=== PATIENT | female | born 1965 | race Caucasian/White ===

== ENCOUNTER 2021-05-28 12:00 | Inpatient (IN) | payer BC, SELFPAY ==
[2021-05-28] VITALS (45 sets, daily range): BP systolic 91–159; BP diastolic 62–139; PULSE 96–149; RESP 14–32; TEMP 36.3–36.4; O2SAT 94–100
--- NOTE | 2021-05-28 | ECHO_ITS ---
Patient Info Name: Brina Merida Age: 55 years : 1965 Gender: Female Ht: 67 in Wt: 357 lbs BSA: 2.87 m2 HR: 131 bpm BP: 129 / 99 mmHg Heart Rhythm: Atrial Fibrillation Technical Quality: Fair Exam Date: 05/28/2021 2:34 PM Exam Location: [facility] Patient Status: Outpatient Admit Date: 05/28/2021 Staff Ordering Physician: Mel De Santiago APRN [employer]: Catarina Hannah RDCS Attending Provider: Marbin Ward MD Referring Physician: Anyi FLORES; Exam Type: CA echo doppler color flow Study Info Indications - afib/rvr Complete two-dimensional, color flow and Doppler transthoracic echocardiogram is performed. Summary 1. Complete two-dimensional, color flow and Doppler transthoracic echocardiogram is performed. 2. Left ventricular chamber dimension is normal. 3. Left ventricular systolic function is normal, estimated at 55-60%. 4. Left ventricular septal wall motion is abnormal with septal motion related to bundle branch block. 5. The left ventricular diastolic function is abnormal. 6. E/e' 11 is mildly elevated. 7. Atrial fibrillation. 8. Left atrial chamber dimension is moderately enlarged. 9. Right atrial chamber dimension is moderately enlarged. 10. The mitral valve has mildly calcified annulus. 11. There is moderate mitral valve regurgitation. 12. There is mild tricuspid valve regurgitation. 13. No pulmonary hypertension, estimated pulmonary arterial systolic pressure is 27 mmHg. Left Ventricle E/e' 11 is mildly elevated. Atrial fibrillation. Left ventricular chamber dimension is normal. Left ventricular systolic function is normal, estimated at 55-60%. Left ventricular septal wall motion is abnormal with septal motion related to bundle branch block. The left ventricular diastolic function is abnormal. Right Ventricle Right ventricular systolic function is normal and with normal TAPSE 1.8 cm. Right ventricular chamber dimension is normal. Left Atria Left atrial chamber dimension is moderately enlarged. Right Atria Right atrial chamber dimension is moderately enlarged. Aortic Valve The aortic valve is probable trileaflet. There is no aortic valve stenosis. There is no aortic valve regurgitation. Pulmonic Valve There is no pulmonic regurgitation. Mitral Valve The mitral valve has mildly calcified annulus. There is no mitral valve stenosis. There is moderate mitral valve regurgitation. Tricuspid Valve There is mild tricuspid valve regurgitation. No pulmonary hypertension, estimated pulmonary arterial systolic pressure is 27 mmHg. Pericardium/Pleural There is no pericardial effusion. Inferior Vena Cava Normal inferior vena cava with >50% collapse upon inspiration consistent with normal right atrial pressure, 5 mmHg. Aorta The aortic root size at the sinus of Valsalva is normal. Left Ventricular Outflow Tract Name Value Normal LVOT 2D LVOT Diameter 2.0 cm LVOT Doppler LVOT Peak Gradient 2 mmHg LVOT Mean Gradient 1 mmHg LVOT VTI 12 cm
--- NOTE | ~2021-05-28 | XR_ITS ---
XR chest 1V portable 05/28/2021 12:26 Indication: Shortness of breath Procedure: AP portable chest Comparison: No prior studies for comparison. Findings: Cardiomegaly. Mild pulmonary vascular congestion. No focal pneumonia, pleural effusion or p neumothorax. No acute osseous abnormality. Impression: 1: Cardiomegaly with pulmonary vascular congestion. Reviewed, dictated and finalized at location B. Impression: 1: Cardiomegaly with pulmonary vascular congestion.
--- NOTE | 2021-05-28 12:13 | ECG_ITS ---
Measurements Intervals [place] Rate: 143 P: VA: 0 QRS: 70 QRSD: 101 T: 48 QT: 309 QTc: 478 Interpretive Statements ATYPICAL ATRIAL FLUTTER WITH 2-1 CONDUCTION LOW QRS VOLTAGE IN PRECORDIAL LEADS [QRS DEFLECTION < 1.0 mV IN CHEST LEADS] ABNORMAL RHYTHM ECG NO PREVIOUS ECG AVAILABLE FOR COMPARISON Electronically Signed On 05-28-2021 14:32:57 CDT by Steven Blair M.D.
--- NOTE | 2021-05-28 12:15 | ED.ARRPALP ---
HPI - Arrhythmia/Palpitations General Chief Complaint: Shortness of Breath/Dyspnea Stated Complaint: shortness of breath Time Seen by Provider: 05/28/21 12:03 Source: RN notes reviewed History of Present Illness HPI narrative: Patient presents emergency department from home for shortness of breath. Patient states she has been having shortness of breath for the past 1 week that is been progressively worsening since been associate with swelling of her lower extremities as well as nausea. Patient states has been having nausea on a regular basis with a feeling of uneasiness in the upper abdomen she denies any fevers or chills states she has been having some chest pressure today over the left side of her chest denies any vomiting diarrhea or any other symptoms. States she has a history of atrial fibrillation she is on amiodarone once per day at night as well as metoprolol which she has been taking as well as Xarelto she is followed by cardiology at [facility]. She denies any fevers or chills Related Data Home Medications Medication Instructions Recorded Confirmed blood sugar diagnostic #10 each 02/16/19 09/27/20 cyanocobalamin (vitamin B-12) 500 500 mcg PO DAILY 02/16/19 09/27/20 mcg tablet ferrous sulfate 325 mg (65 mg 325 mg PO DAILY 02/16/19 09/27/20 iron) tablet amiodarone 200 mg tablet 200 mg PO DAILY 05/11/19 09/27/20 dapagliflozin 10 mg tablet 10 mg PO DAILY 05/11/19 09/27/20 metoprolol succinate 25 mg 75 mg PO BID tablet 05/11/19 09/27/20 tablet,extended release 24 hr spironolactone 50 mg tablet 50 mg PO DAILY 05/11/19 09/27/20 cholecalciferol (vitamin D3) 50 1,000 unit PO DAILY tablet 09/15/19 09/27/20 mcg (2,000 unit) tablet rivaroxaban 20 mg tablet 20 mg PO DAILY 09/27/20 09/27/20 Allergies Allergy/AdvReac Type Severity Reaction Status Date / Time No Known Allergies Allergy Verified 08/23/20 09:05 Review of Systems Review of Systems: Gen.: Denies fevers or chills ENT: Denies congestion Respiratory: Reports shortness of breath CV: Reports chest pain GI: Denies abdominal pain vomiting or diarrhea. Reports nausea denies burning, urgency, frequency or hematuria Musculoskeletal: Denies back pain or muscle pain Neuro: Denies numbness, tingling, weakness or focal weakness Skin: Denies rash Except as documented, all other systems reviewed and negative [facility] Past Medical History Medical History (Updated 05/28/21 @ 15:30 by Aftab Louie DO) Acute non-recurrent maxillary sinusitis Acute pharyngitis, unspecified Chronic left hip pain Chronic low back pain with left-sided sciatica Chronic low back pain with right-sided sciatica COVID-19 Diabetes A1c 05/20/20 was 7.3 Diabetic peripheral neuropathy associated with type 2 diabetes mellitus (09/27/20) Hip pain, right Irregular menses FSH 9.2, LH 7.1, estradiol 82 on 02/28/2021 Low back pain Microalbuminuria due to type 2 diabetes mellitus (09/19/20) Microalbumin ratio 31 Muscle spasm of both lower legs SI joint arthritis (08/23/20) severe on right and moderate on the left arthritis of the SI joints UTI (urinary tract infection) Yeast vaginitis Surgical History Surgical History (Updated 05/28/21 @ 14:43 by Mel De Santiago APRN) History of tubal ligation Status post endometrial ablation Family History Family History Father Diabetes mellitus Mother Carcinoma of colon, Onset Age: 53 Grandparent Family history of malignant neoplasm of breast in first degree relative, Onset Age: 90 Social History Social History Smoking status: Never smoker Alcohol intake: current Alcohol use details: ben Substance use: never Substance use type: does not use Additional occupation/education comments: [employer] Gender identity (if verbalized by the patient): Female Exam Narrative
[2021-05-28 12:22] LABS: Basophils Absolute Auto 0.1 K/mm3 (0.0-0.1); Basophils Percent Auto 0.7 % (0.2-1.2); Eosinophils Absolute Auto 0.2 K/mm3 (0-0.3); Eosinophils Percent Auto 1.7 % (0-4.4); Hematocrit 38.4 % (37.0-47.0); Immature Granulocyte Absolute 0.05 K/mm3 (0.00-0.031); Immature Granulocyte Percent A 0.6 % (0-0.5); Lymphocytes Absolute Auto 1.94 K/mm3 (0.9-3.2); Lymphocytes Percent Auto 22.4 % (18.3-44.2); Mean Corpuscular HGB Conc 31.3 g/dl (32-36); Mean Corpuscular Hemoglobin 26.5 pg (26-34); Mean Platelet Volume 10.1 fl (7.4-10.4); Monocytes Absolute Auto 0.6 K/mm3 (0.1-0.6); Monocytes Percent Auto 7.4 % (2.6-8.5); Neutrophils Absolute Auto 5.8 K/mm3 (1.3-6.7); Neutrophils Percent Auto 67.2 % (45.5-73.1); Platelet Count Result 253 k/mm3 (150-375); Red Blood Count 4.52 M/mm3 (4.2-5.4); Red Cell Distribution Width 13.4 % (11.5-14.5); White Blood Count 8.7 K/mm3 (4.5-10.0)
[2021-05-28] MEDS: dilTIAZem HCl INJ 25 MG/5 ML VIAL 5 MG IV PUSH (12:33)
[2021-05-28] MEDS: dilTIAZem 100 MG/100 ML 100 MG/100 ML BAG IV CONT (12:44)
[2021-05-28 12:59] LABS: Alanine Aminotransferase 35 U/L (4-35); Alkaline Phosphatase 58 U/L (38-126); Anion Gap 10 mmol/L (8-16); Aspartate Amino Transferase 42 U/L (14-36); Bilirubin,Total 0.8 mg/dL (0.2-1.3); Blood Urea Nitrogen 15 mg/dL (7-17); Calcium 8.9 mg/dL (8.4-10.2); Carbon Dioxide 25 mmol/L (22-30); Chloride 101 mmol/L (98-107); Estimated CRCL calculation 100 ml/min; Estimated Glomerular Filt Rate > 60; Glucose 182 mg/dL (65-110); Lipase 126 U/L (23-300); Potassium 3.7 mmol/L (3.4-5.0); Sodium 136 mmol/L (137-145)
[2021-05-28 13:11] LABS: NT Pro B Type Natriuretic Pept 938 pg/mL (5-100); Troponin I < 0.012 ng/mL (0.000-0.034)
[2021-05-28 13:41] LABS: INR 1.9
[2021-05-28 14:01] LABS: Partial Thromboplastin Time > 200.0 SECONDS (22.3-36.8)
[2021-05-28 14:21] LABS: Add Urine Microscopic? YES; Appearance Urine Cloudy (Clear); Bacteria Urine Trace /hpf; Bilirubin Urine Negative (Negative); Blood Urine 1+ (Negative); Color Urine Yellow (Yellow); Glucose Urine UA 2+ mg/dL (Negative); Ketones Urine Negative (Negative); Leukocyte Esterase Ur Negative LEU/UL (Negative); Mucus Urine Rare /lpf; Nitrate Urine Negative (Negative); Protein Urine 1+ mg/dL (Negative); RBC Urine 0-2 /hpf (0-2); Specific Grav Ur 1.017 (1.001-1.035); Squamous Epithelial Cell Urine Moderate /hpf (Few); WBC Urine 0-3 /hpf
--- NOTE | 2021-05-28 14:39 | PM.IMHP ---
H&P: HPI History of Present Illness Date/Time: Patient was placed observation status for expected length of stay less than 23 hours for management, will plan to re-evaluate tomorrow for improvement. 05/28/21 14:39 Chief Complaint: Shortness of breath Narrative: Ms. Merida is a 55-year-old female who presented emergency room with complaints of shortness of breath x1 week. Patient states she has a known history of atrial fibrillation and she sees a prototype model maker at [facility]. Patient states over the last week she has had increasing shortness of breath and over the last few days she has had a heaviness over her left breast. Patient states that typically when her atrial fibrillation is ?acting up? she will get this heaviness. Patient denies any palpitations and states she has never had any with her atrial fibrillation. Patient states that on occasion she will forget to take her oral Lasix because it is the only medication she takes in the morning. Patient states she also believes she has been off of her amiodarone for approximately 1 week secondary to not realizing she had run out of it and is a mail order medication. Patient denies any lightheadedness, dizziness, syncopal, near syncopal episodes, orthopnea, or PND. Patient states that she does have edema to bilateral lower extremities, but this is a chronic issue for her and it has not worsened recently. Patient has a known history of atrial fibrillation, diabetes mellitus, depression, dyslipidemia, osteoarthritis, and chronic pain. Patient states she has also had a history of congestive heart failure although she is unsure of what type of heart failure she has. Patient states she is diabetic and supposed to be taking Farxiga, but she has not gotten the medication because it was too expensive co-pay. Patient states she has only been taking her metformin. Review of Systems Review of Systems: A 12 point review of systems was completed patient all pertinent positive and negative per HPI the remainder are unremarkable. [facility] Past Medical History Medical History (Updated 05/28/21 @ 14:53 by Mel De Santiago APRN) Acute non-recurrent maxillary sinusitis Acute pharyngitis, unspecified Chronic left hip pain Chronic low back pain with left-sided sciatica Chronic low back pain with right-sided sciatica COVID-19 Diabetes A1c 05/20/20 was 7.3 Diabetic peripheral neuropathy associated with type 2 diabetes mellitus (09/27/20) Hip pain, right Irregular menses FSH 9.2, LH 7.1, estradiol 82 on 02/28/2021 Low back pain Microalbuminuria due to type 2 diabetes mellitus (09/19/20) Microalbumin ratio 31 Muscle spasm of both lower legs SI joint arthritis (08/23/20) severe on right and moderate on the left arthritis of the SI joints UTI (urinary tract infection) Yeast vaginitis Surgical History Surgical History (Updated 05/28/21 @ 14:43 by Mel De Santiago APRN) History of tubal ligation Status post endometrial ablation Family History Family History Father Diabetes mellitus Mother Carcinoma of colon, Onset Age: 53 Grandparent Family history of malignant neoplasm of breast in first degree relative, Onset Age: 90 Social History Social History Smoking status: Never smoker Alcohol intake: current Alcohol use details: ben Substance use: never Substance use type: does not use Additional occupation/education comments: [employer] Gender identity (if verbalized by the patient): Female Meds Home Medications and Allergies Home Medications Medication Instructions Recorded Confirmed Type albuterol sulfate 90 mcg/actuation 2 puff INHALATION Q4H PRN #18 gm 01/19/19 09/27/20 Rx aerosol inhaler blood sugar diagnostic #10 each 02/16/19 09/27/20 History cyanocobalamin (vitamin B-12) 500 500 mcg PO DAILY 02/16/19 09/27/20 De
[2021-05-28] MEDS: FUROSEMIDE INJ 40 MG/4 ML VIAL IV PUSH (14:44)
[2021-05-28 15:22] LABS: SARS-CoV-2 RNA PCR Negative
[2021-05-28 15:57] LABS: Troponin I < 0.012 ng/mL (0.000-0.034)
--- NOTE | 2021-05-28 16:22 | PC.NURSE ---
This patient, Brina Merida, was admitted to IMU Room 206-02. Patient/family oriented to hospital policies and general routines including ID bracelet, bed and alarms, visiting hours, pain management, procedures, bathroom and other care routines, personal items, smoking policy, room service/diet, and visiting hours. Information on how to activate the Rapid Response Team has been discussed. Patient/Family are encouraged to report perceived risks to care and to ask questions if they do not understand what they are told or what they should do.
[2021-05-28 16:38] LABS: Glucose Point of Care 154 mg/dl (65-105)
[2021-05-28] MEDS: METOPROLOL TARTRATE TAB 25 MG, METOPROLOL TARTRATE TAB 50 MG 75 MG PO ×2 (17:36→23:21)
[2021-05-28] MEDS: dilTIAZem 100 MG/100 ML 100 MG/100 ML BAG 15 MG IV CONT (18:29)
[2021-05-28 19:35] LABS: Glucose Point of Care 165 mg/dl (65-105)
[2021-05-28 19:57] LABS: Troponin I < 0.012 ng/mL (0.000-0.034)
[2021-05-28] MEDS: traZODone HCL 50 MG TABLET 100 MG PO (23:21)
[2021-05-28] MEDS: RIVAROXABAN 20 MG TABLET PO (23:52)
[2021-05-29] VITALS (26 sets, daily range): BP systolic 85–112; BP diastolic 42–78; PULSE 65–117; RESP 18; TEMP 35.2–36.8; O2SAT 95–100
[2021-05-29] MEDS: dilTIAZem 100 MG/100 ML 100 MG/100 ML BAG 15 MG IV CONT ×2 (01:14→08:06)
[2021-05-29 05:08] LABS: Basophils Absolute Auto 0.1 K/mm3 (0.0-0.1); Basophils Percent Auto 0.7 % (0.2-1.2); Eosinophils Absolute Auto 0.2 K/mm3 (0-0.3); Eosinophils Percent Auto 2.1 % (0-4.4); Hematocrit 35.4 % (37.0-47.0); Hemoglobin 11.1 g/dL (12.0-15.0); Immature Granulocyte Absolute 0.07 K/mm3 (0.00-0.031); Immature Granulocyte Percent A 0.7 % (0-0.5); Lymphocytes Absolute Auto 3.23 K/mm3 (0.9-3.2); Lymphocytes Percent Auto 32.9 % (18.3-44.2); Mean Corpuscular HGB Conc 31.4 g/dl (32-36); Mean Corpuscular Hemoglobin 26.9 pg (26-34); Mean Corpuscular Volume 85.7 fl (80-100); Mean Platelet Volume 10.2 fl (7.4-10.4); Monocytes Absolute Auto 0.8 K/mm3 (0.1-0.6); Monocytes Percent Auto 8.1 % (2.6-8.5); Neutrophils Absolute Auto 5.4 K/mm3 (1.3-6.7); Neutrophils Percent Auto 55.5 % (45.5-73.1); Platelet Count Result 262 k/mm3 (150-375); Red Blood Count 4.13 M/mm3 (4.2-5.4); Red Cell Distribution Width 13.5 % (11.5-14.5); White Blood Count 9.8 K/mm3 (4.5-10.0)
[2021-05-29 05:22] LABS: Anion Gap 8 mmol/L (8-16); Blood Urea Nitrogen 17 mg/dL (7-17); Calcium 8.6 mg/dL (8.4-10.2); Carbon Dioxide 26 mmol/L (22-30); Chloride 101 mmol/L (98-107); Estimated CRCL calculation 100 ml/min; Estimated Glomerular Filt Rate > 60; Glucose 151 mg/dL (65-110); Potassium 3.3 mmol/L (3.4-5.0); Sodium 135 mmol/L (137-145)
[2021-05-29] MEDS: METOPROLOL TARTRATE TAB 25 MG, METOPROLOL TARTRATE TAB 50 MG 75 MG PO ×3 (05:53→21:51)
[2021-05-29] MEDS: AMIODARONE HCL 200 MG TABLET PO (08:09)
[2021-05-29] MEDS: FERROUS SULFATE 324 MG TABLET PO (08:09)
[2021-05-29] MEDS: POTASSIUM CHLORIDE 20 MEQ TABLET.ER 40 MEQ BY MOUTH (08:09)
[2021-05-29 08:21] LABS: Glucose Point of Care 185 mg/dl (65-105)
--- NOTE | 2021-05-29 09:24 | PM.CNCAR ---
Assessment and Plan Assessment and plan (1) Atrial fibrillation with rapid ventricular response: Code(s): I48.91 - Unspecified atrial fibrillation Status: Acute Assessment and Plan: Patient with a history of paroxysmal atrial fibrillation which has been controlled well with amiodarone, metoprolol and Xarelto. Presented with persistent atypical atrial flutter, now looks like an AFib, RVR. Not well controlled at this time. Medical management somewhat hampered by soft blood pressure Hold losartan at this time Continue diltiazem 10 milligrams/hour Amiodarone bolus Increase p.o. amiodarone to 400 mg BID Continue Xarelto; has not missed any doses. Depending on the patient's course we may consider cardioversion during this admission (2) Acute diastolic CHF (congestive heart failure): Code(s): I50.31 - Acute diastolic (congestive) heart failure Status: Acute Assessment and Plan: Acute on chronic diastolic heart failure due to AFib RVR Continue IV Lasix, increase to b.i.d. Hypokalemic on admission, will supplement potassium and check daily BMP. Check Magnesium level in a.m. (3) Mitral regurgitation: Code(s): I34.0 - Nonrheumatic mitral (valve) insufficiency Status: Acute Assessment and Plan: Moderate mitral regurgitation. Will need to be re-evaluated in the future by her usual sole sewer hand. (4) Hypertension: Code(s): I10 - Essential (primary) hypertension Status: Acute Assessment and Plan: Blood pressure is running low now. (5) ANTONIA (obstructive sleep apnea): Code(s): G47.33 - Obstructive sleep apnea (adult) (pediatric) Status: Acute Assessment and Plan: Compliant with CPAP (6) Morbid obesity: Code(s): E66.01 - Morbid (severe) obesity due to excess calories Status: Acute History of Present Illness History of Present Illness Consult date/time: 05/29/21 09:24 Reason For Visit: A fib with RVR/CHF Narrative: Brina Merida is a 55-year-old female whom were asked to see at the request of Dr. Louie for our advice and opinion regarding her AFib RVR and CHF. The patient has a history of AFib in CHF and is followed by DR. Crews at [facility]. Her AFib was diagnosed in 2019 and took about a year before medications were adjusted and the AFib seemed to be resolved/controlled, with amiodarone, metoprolol and Xarelto. She has never had a cardioversion and has not needed a cardiac catheterization. She has hypertension, diabetes and hyperlipidemia. She has sleep apnea on CPAP. She had COVID in January 2020. Ms. Merida has noted increasing shortness of breath for last 1-2 weeks. She usually takes her furosemide 40 mg 1 or 2 tablets today and increased it to 2 or 3 tablets a day recently without improvement. She has not felt any palpitations. She was having some nausea as well as substernal chest heaviness particularly supine. She came to the emergency room and was found to have atypical atrial flutter, RVR, heart rate 130-150. She is on a Cardizem drip at 10 milligrams/hour and given furosemide 40 mg IV push. She is not feeling much better but hopes to go home today. Heart rate is running up to the 120s with minor activity. She did run out of 1 medicine, her losartan, recently as it has not arrived from her mail order pharmacy. She has not missed any Xarelto doses. Chronic lower extremity edema not much worse than usual. She has been compliant with her CPAP. Review of Systems Constitutional: Constitutional: Reports fatigue and Reports weakness Eyes: Eyes: Reports no additional eye complaints ENT: Denies epistaxis Cardiovascular: Cardiovascular: Reports chest pain, Reports pedal edema, Reports leg edema, Denies lightheadedness and Denies palpitations Respiratory: Respiratory: Reports chest congestion, Reports cough, Reports dyspnea and Reports dyspnea on exertion Gastrointestinal: Gastrointestinal: Denies abdomin
[2021-05-29] MEDS: FUROSEMIDE INJ 40 MG/4 ML VIAL IV PUSH ×2 (09:31→17:48)
[2021-05-29] MEDS: LOSARTAN POTASSIUM 50 MG TABLET PO (09:32)
[2021-05-29] MEDS: SPIRONOLACTONE 50 MG TABLET PO (09:32)
[2021-05-29] MEDS: ESCITALOPRAM OXALATE 10 MG TABLET 20 MG PO (09:32)
[2021-05-29] MEDS: CHOLECALCIFEROL 1,000 UNITS TABLET 1000 UNITS PO (09:32)
[2021-05-29] MEDS: CYANOCOBALAMIN 500 MCG TABLET PO (09:33)
[2021-05-29] MEDS: ATORVASTATIN 10 MG TABLET PO (09:33)
[2021-05-29] MEDS: LANSOPRAZOLE ORAL SUSP 30 MG/10 ML ORAL.SUSP PO (09:36)
--- NOTE | 2021-05-29 12:01 | PM.IMPN ---
Progress Note: A&P Assessment and Plan (1) Atrial fibrillation with rapid ventricular response: Code(s): I48.91 - Unspecified atrial fibrillation Status: Acute Assessment and Plan: -Patient with a history of paroxysmal atrial fibrillation which has been controlled well with amiodarone, metoprolol and Xarelto. -Presented with persistent atypical atrial flutter, now looks like an AFib, RVR. Not well controlled at this time. Management per cardiology as follows: -Hold losartan at this time. -Continue diltiazem 10 milligrams/hour -Amiodarone bolus -Increase p.o. amiodarone to 400 mg BID -Continue Xarelto; has not missed any doses. -Depending on the patient's course we may consider cardioversion during this admission (2) Congestive heart failure of unknown etiology: Code(s): I50.9 - Heart failure, unspecified Status: Deleted Assessment and Plan: -Chest x-ray does show pulmonary vascular congestion. -At this time patient's acute congestive heart failure could be secondary to her atrial fibrillation with rapid ventricular response. -Patient states she does not take her Lasix all the time at home because she often forgets it. -Will give patient 1 dose of IV Lasix and monitor intake and output. -Will have echo Doppler performed to evaluate patient's heart function. -Will also attempt to get all cardiology records from [facility]. -Cardiology has been consult and do appreciate any further recommendations. (3) Type 2 diabetes mellitus without complication, without long-term current use of insulin: Code(s): E11.9 - Type 2 diabetes mellitus without complications Status: Acute Assessment and Plan: -Patient states she has been taking metformin at home and was recently prescribed Farxiga, but she never started this medication secondary to cost. -Will have blood glucose monitoring before meals and at bedtime while patient is hospitalized and sliding scale insulin available. (4) Hypokalemia: Code(s): E87.6 - Hypokalemia Status: Acute Assessment and Plan: -monitor and replace as indicated -daily BMP -check mag in AM Subjective Date/time seen: 05/29/21 12:01 Interval history: Pt is a 55 yo female w/ hx of atrial fibrillation, CHF, diabetes mellitus, depression, dyslipidemia, osteoarthritis, and chronic pain, admitted for afib rvr. Pt is doing okay today. At rest she has no cp or sob. With exertion she is still having some sob and chest pressure, but it has improved. She denies N/V/D/abd pain. Denies LE pain, states always has some mild edema. Review of Systems Review of Systems: All systems reviewed & are unremarkable except as noted in HPI and below Exam Narrative: General: No acute distress, non toxic appearing, morbidly obese Eyes: PERRL, no scleral icterus HEENT: NCAT, external ears normal, MMM Respiratory: No respiratory distress, Lungs CTA bilaterally, no wheezing Cardiovascular: tachycardic, irregular rhythm Abdominal: Soft, nontender, no rebound or guarding Musculoskeletal: Moves all 4 extremities, 1+ edema BLE, no tenderness Neurological: A/Ox3, speech normal, no facial asymmetry Skin: Warm, dry, no rashes Psychiatric: Normal affect, normal mood Objective Data Vital Signs Vital Signs: Vital Signs - 24 hr 05/28/21 12:05 05/28/21 12:06 05/28/21 12:07 Temperature 97.4 F L Pulse Rate 130 H Respiratory Rate 20 Blood Pressure 153/118 H 153/118 H Pulse Oximetry 100 100 100 05/28/21 12:15 05/28/21 12:30 05/28/21 12:32 Temperature Pulse Rate 146 H 138 H Respiratory Rate 25 H 19 Blood Pressure 152/131 H Pulse Oximetry 100 100 97 05/28/21 12:34 05/28/21 12:44 05/28/21 12:45 Temperature Pulse Rate 123 H 137 H Respiratory Rate 21 H Blood Pressure 117/72 117/72 Pulse Oximetry 99 100 05/28/21 12:47 05/28/21 13:00 05/28/21 13:01 Temperature Pulse Rate
[2021-05-29 12:03] LABS: Glucose Point of Care 206 mg/dl (65-105)
[2021-05-29] MEDS: AMIODARONE HCL 200 MG TABLET 400 MG PO ×2 (12:27→17:48)
[2021-05-29] MEDS: AMIODARONE 150 MG/D5W 100 ML 150 MG/100 ML BAG 600 MG IV CONT (12:28)
[2021-05-29] MEDS: INSULIN ASPART (*BKC) 100 UNITS/ML SUB-Q (12:38)
[2021-05-29 16:39] LABS: Glucose Point of Care 184 mg/dl (65-105)
[2021-05-29] MEDS: RIVAROXABAN 20 MG TABLET PO (17:49)
[2021-05-29] MEDS: dilTIAZem 100 MG/100 ML 100 MG/100 ML BAG IV CONT (17:50)
[2021-05-29 20:48] LABS: Glucose Point of Care 189 mg/dl (65-105)
[2021-05-29] MEDS: traZODone HCL 50 MG TABLET 100 MG PO (21:50)
[2021-05-30] VITALS (19 sets, daily range): BP systolic 96–122; BP diastolic 46–84; PULSE 66–130; RESP 8–22; TEMP 36.2–36.8; O2SAT 93–100
[2021-05-30 05:07] LABS: Basophils Absolute Auto 0.1 K/mm3 (0.0-0.1); Basophils Percent Auto 0.8 % (0.2-1.2); Eosinophils Absolute Auto 0.2 K/mm3 (0-0.3); Eosinophils Percent Auto 2.1 % (0-4.4); Hematocrit 36.5 % (37.0-47.0); Hemoglobin 11.4 g/dL (12.0-15.0); Immature Granulocyte Absolute 0.08 K/mm3 (0.00-0.031); Immature Granulocyte Percent A 0.8 % (0-0.5); Lymphocytes Absolute Auto 3.36 K/mm3 (0.9-3.2); Lymphocytes Percent Auto 33.8 % (18.3-44.2); Mean Corpuscular HGB Conc 31.2 g/dl (32-36); Mean Corpuscular Hemoglobin 26.8 pg (26-34); Mean Corpuscular Volume 85.9 fl (80-100); Monocytes Absolute Auto 0.7 K/mm3 (0.1-0.6); Neutrophils Absolute Auto 5.5 K/mm3 (1.3-6.7); Neutrophils Percent Auto 55.5 % (45.5-73.1); Platelet Count Result 272 k/mm3 (150-375); Red Blood Count 4.25 M/mm3 (4.2-5.4); Red Cell Distribution Width 13.7 % (11.5-14.5); White Blood Count 9.9 K/mm3 (4.5-10.0)
[2021-05-30 05:27] LABS: Anion Gap 10 mmol/L (8-16); Blood Urea Nitrogen 19 mg/dL (7-17); Calcium 8.6 mg/dL (8.4-10.2); Carbon Dioxide 25 mmol/L (22-30); Chloride 102 mmol/L (98-107); Estimated CRCL calculation 82 ml/min; Estimated Glomerular Filt Rate 52; Glucose 148 mg/dL (65-110); Magnesium 1.9 mg/dL (1.6-2.3); Potassium 3.4 mmol/L (3.4-5.0); Sodium 137 mmol/L (137-145)
[2021-05-30] MEDS: METOPROLOL TARTRATE TAB 25 MG, METOPROLOL TARTRATE TAB 50 MG 75 MG PO ×2 (06:00→15:50)
[2021-05-30 08:06] LABS: Glucose Point of Care 154 mg/dl (65-105)
[2021-05-30] MEDS: ESCITALOPRAM OXALATE 10 MG TABLET 20 MG PO (08:15)
[2021-05-30] MEDS: CHOLECALCIFEROL 1,000 UNITS TABLET 1000 UNITS PO (08:16)
[2021-05-30] MEDS: ATORVASTATIN 10 MG TABLET PO (08:16)
[2021-05-30] MEDS: FUROSEMIDE INJ 40 MG/4 ML VIAL IV PUSH ×2 (08:17→18:23)
[2021-05-30] MEDS: CYANOCOBALAMIN 500 MCG TABLET PO (08:17)
[2021-05-30] MEDS: SPIRONOLACTONE 50 MG TABLET PO (08:18)
[2021-05-30] MEDS: LANSOPRAZOLE ORAL SUSP 30 MG/10 ML ORAL.SUSP PO (08:44)
--- NOTE | 2021-05-30 10:51 | PM.IMPN ---
Progress Note: A&P Assessment and Plan (1) Atrial fibrillation with rapid ventricular response: Code(s): I48.91 - Unspecified atrial fibrillation Status: Acute Assessment and Plan: -Patient with a history of paroxysmal atrial fibrillation which has been controlled well with amiodarone, metoprolol and Xarelto. -Presented with persistent atypical atrial flutter, now looks like an AFib, RVR. Not well controlled at this time. Management per cardiology as follows: -Hold losartan at this time. -Continue diltiazem 10 milligrams/hour -Amiodarone bolus -Increase p.o. amiodarone to 400 mg BID -Continue Xarelto; has not missed any doses. -Depending on the patient's course we may consider cardioversion during this admission (2) Congestive heart failure of unknown etiology: Code(s): I50.9 - Heart failure, unspecified Status: Deleted Assessment and Plan: -Chest x-ray does show pulmonary vascular congestion. -At this time patient's acute congestive heart failure could be secondary to her atrial fibrillation with rapid ventricular response. -Patient states she does not take her Lasix all the time at home because she often forgets it. Echocardiogram revealed an LVEF of 55-60% with abnormal diastolic dysfunction -Will also attempt to get all cardiology records from [facility]. -Cardiology has been consult and do appreciate any further recommendations. (3) Type 2 diabetes mellitus without complication, without long-term current use of insulin: Code(s): E11.9 - Type 2 diabetes mellitus without complications Status: Acute Assessment and Plan: -Patient states she has been taking metformin at home and was recently prescribed Farxiga, but she never started this medication secondary to cost. Insulin Lispro sliding scale, Accu-checks qAc and HS and Hold oral hypoglycemics (4) Hypokalemia: Code(s): E87.6 - Hypokalemia Status: Acute Assessment and Plan: -monitor and replace as indicated -daily BMP -check mag in AM Subjective Date/time seen: 05/30/21 10:51 Patient is alert and oriented x4 this morning. No acute events reported by RN during the night. Patient remains on a Cardizem drip at 5. Cardiology has been consulted for further evaluation. Patient reportedly is contemplating a cardioversion. Patient reports that she follows with a observer gravity prospecting at [facility] in [place]. Labs reviewed, essentially unremarkable. Chest x-ray did reveal cardiomegaly with pulmonary vascular congestion, patient is on furosemide 40 mg b.i.d. echocardiogram revealed LVEF 55-60% with abnormal diastolic dysfunction. Of note the patient continues to take Xarelto, losartan is on hold due to the patient's marginal blood pressure and her amiodarone has been increased to 40 mg b.i.d. Review of Systems Review of Systems: All systems reviewed & are unremarkable except as noted in HPI and below Exam Narrative: General: No acute distress, non toxic appearing, morbidly obese Eyes: PERRL, no scleral icterus HEENT: NCAT, external ears normal, MMM Respiratory: No respiratory distress, Lungs CTA bilaterally, no wheezing Cardiovascular: tachycardic, irregular rhythm Abdominal: Soft, nontender, no rebound or guarding Musculoskeletal: Moves all 4 extremities, 1+ edema BLE, no tenderness Neurological: A/Ox3, speech normal, no facial asymmetry Skin: Warm, dry, no rashes Psychiatric: Normal affect, normal mood Objective Data Vital Signs Vital Signs: Vital Signs - 24 hr 05/29/21 12:00 05/29/21 12:28 05/29/21 13:35 Temperature Pulse Rate 81 108 H 117 H Respiratory Rate 18 Blood Pressure 100/63 102/71 Pulse Oximetry 99 05/29/21 13:36 05/29/21 14:00 05/29/21 16:00 Temperature Pulse Rate 111 H 109 H 81 Respiratory Rate 18 Blood Pressure 103/70 Pulse Oximetry 99 05/29/21 17:27 05/29/21 17:50 05/29/21 18:00 Tempera
[2021-05-30] MEDS: dilTIAZem 100 MG/100 ML 100 MG/100 ML BAG IV CONT (11:26)
[2021-05-30 12:16] LABS: Glucose Point of Care 166 mg/dl (65-105)
--- NOTE | 2021-05-30 13:11 | WPDANESEPP ---
Anes - Eval Pre Procedure Procedure: Operation Date: 05/30/21 14:00 Proposed Procedures p Electrical Cardioversion - Heidi Tong MD Date/Time: 05/30/21 13:11 Pre Op Diagnosis: A fib with RVR/CHF Patient Data Age: 55 Gender: F Height: 1.7 m Weight: 156.2 kg Last Vital Signs Temp 36.2 C L 05/30/21 12:00 Pulse 97 05/30/21 12:00 Resp 22 H 05/30/21 12:00 BP 117/53 L 05/30/21 12:00 Pulse Ox 100 05/30/21 12:00 Allergies Allergy/AdvReac Type Severity Reaction Status Date / Time No Known Allergies Allergy Verified 05/28/21 16:29 Home Medications Medication Instructions Recorded Confirmed Type albuterol sulfate 90 mcg/actuation 2 puff INHALATION Q4H PRN #18 gm 01/19/19 05/28/21 Rx aerosol inhaler blood sugar diagnostic #10 each 02/16/19 05/28/21 History cyanocobalamin (vitamin B-12) 500 500 mcg PO DAILY 02/16/19 05/28/21 History mcg tablet ferrous sulfate 325 mg (65 mg 325 mg PO DAILY 02/16/19 05/28/21 History iron) tablet amiodarone 200 mg tablet 200 mg PO DAILY 05/11/19 05/28/21 History metoprolol succinate 25 mg 75 mg PO BID tablet 05/11/19 05/28/21 History tablet,extended release 24 hr spironolactone 50 mg tablet 50 mg PO DAILY 05/11/19 05/28/21 History cholecalciferol (vitamin D3) 50 1,000 unit PO DAILY tablet 09/15/19 05/28/21 History mcg (2,000 unit) tablet lansoprazole 30 mg capsule,delayed 30 mg PO DAILY #90 cap 05/23/20 05/28/21 Rx release metformin 500 mg tablet,extended 500 mg PO BID #180 tablet 05/23/20 05/28/21 Rx release 24 hr rivaroxaban 20 mg tablet 20 mg PO QPM 09/27/20 05/28/21 History atorvastatin 10 mg tablet 10 mg PO DAILY #90 tablet 01/02/21 05/28/21 Rx losartan 50 mg tablet 50 mg PO DAILY #90 tablet 01/02/21 05/28/21 Rx furosemide 40 mg tablet 40 mg PO BID #180 tablet 04/16/21 05/28/21 Rx potassium chloride 20 mEq See Rx Instructions .ROUTE 04/16/21 05/28/21 Rx tablet,extended release(part/cryst) .COMPLEX #180 tablet blood sugar diagnostic #100 ea 05/11/21 05/28/21 Rx tramadol 50 mg tablet See Rx Instructions PO Q6H PRN #50 05/15/21 05/28/21 Rx tablet escitalopram oxalate 20 mg PO DAILY 05/28/21 05/28/21 History trazodone 50 - 100 mg PO HS 05/28/21 05/28/21 History Laboratory Tests 05/29/21 05/29/21 05/30/21 16:14 20:45 04:48 WBC RBC Hgb Hct MCV MCH MCHC RDW Plt Count MPV Immature Gran % (Auto) Neut % (Auto) Lymph % (Auto) [place] % (Auto) Eos % (Auto) Baso % (Auto) Lymph # (Auto) [place] # (Auto) Eos # (Auto) Baso # (Auto) Abs Immat Gran (auto) Absolute Neuts (auto) Absolute Nucleated RBC Nucleated RBC % Sodium 137 mmol/L mmol/L (137-145) Potassium 3.4 mmol/L mmol/L (3.4-5.0) Chloride 102 mmol/L mmol/L (98-107) Carbon Dioxide 25 mmol/L mmol/L (22-30) Anion Gap 10 mmol/L mmol/L (8-16) BUN 19 mg/dL H mg/dL (7-17) Creatinine 1.10 mg/dL H mg/dL (0.7-1.0) Estim Creat Clear Calc 82 ml/min ml/min Estimated GFR 52 L (59 - ) Glucose 148 mg/dL H mg/dL (65-110) POC Capillary Glucose 184 mg/dl H mg/dl 189 mg/dl H mg/dl (65-105) (65-105) Calcium 8.6 mg/dL mg/dL (8.4-10.2) Magnesium 1.9 mg/dL mg/dL (1.6-2.3) 05/30/21 05/30/21 05/30/21 04:48 07:59 12:10 WBC 9.9 K/mm3 K/mm3 (4.5-10.0) RBC 4.25 M/mm3 M/mm3 (4.2-5.4) Hgb 11.4 g/dL L g/dL (12.0-15.0) Hct 36.5 % L % (37.0-47.0) MCV 85.9 fl fl (80-100) MCH 26.8 pg pg (26-34) MCHC 31.2 g/dl L g/dl (32-36) RDW 13.7 % % (11.5-14.5) Plt Count 272 k/mm3 k/mm3
--- NOTE | 2021-05-30 14:05 | WPDHPUPDATE1 ---
History and Physical Update Update Date/Time: 05/30/21 14:05 History and Physical has been reviewed, including an updated exam of the patient. Patient has persistent atrial fibrillation; heart rate is reasonably well controlled at rest but with activity a runs up to 130 beats per minute. Still has DORANTES. Has not missed any Xarelto. Otherwise, There are NO changes in the patient's condition. Risks, benefits, and alternatives have been discussed and questions answered. Risks include breathing problems, blood pressure problems, untoward arrhythmias such as bradycardia, and small risk of stroke, among others. Patient agrees to proceed with procedure.
--- NOTE | 2021-05-30 14:25 | WPDANESEFPP ---
Anes - Eval Final PreProcedure Day of Procedure 05/30/21 14:25 Patient weight: super morbidly obese Heart: regular rate and rhythm Lungs: clear to auscultation and normal air movement Airway: Mallampati scale class II Neurological: alert and oriented Last oral intake: >/= 8 hours ASA classification: IV Emergent: no Anesthetic plan: proceed Anesthesia type and monitoring: general GIVS and standard monitoring Results Review: All pre-operative results and documents have been reviewed as part of the pre-operative evaluation. Informed Consent: The patient's anesthetic plan and its attendant risks and benefits were discussed with the patient/family/POA. Questions were solicited and answers provided to the satisfaction of the patient/family/POA.
--- NOTE | 2021-05-30 15:12 | PM.OP ---
Procedure Note - Brief Procedure Note - Brief Date of procedure: 05/30/21 Pre-op diagnosis: A fib with RVR/CHF Post-op diagnosis: Same Description of procedure: Attempted cardioversion; unsuccessful. Surgeon: Heidi Tong MD Condition: Stable Disposition: Floor Findings: Patient remained in AFib despite 3 cardioversions
--- NOTE | 2021-05-30 15:12 | W.PM.PROC2 ---
Procedure Note - Detailed Date of Procedure 05/30/21 Pre-op Diagnosis A fib with RVR/CHF. Has had history of atrial fibrillation, controlled with Xarelto and amiodarone the last couple of years. Admitted with CHF and persistent AFib RVR. The patient has been pretreated with amiodarone bolus, diltiazem drip, and I increased her home amiodarone dose to 400 mg b.i.d. for the last few days. She has been compliant with Xarelto and has not missed any doses. Post-op Diagnosis Same Procedure Performed Cardioversion with assistance from anesthesia Surgeon Heidi Tong MD Anesthesia Other (Sedation with the assistance of anesthesia) Indications Persistent AFib, RVR with activity Description of Procedure Cardioversion: After informed consent and the above conscious sedation, the patient underwent elective electrical synchronized cardioversion with 300 joules of synchronized biphasic energy whle applying pressure to the pad but remained in atrial fibrillation. She underwent a 2nd cardioversion with 360 joules of synchronized biphasic energy while applying pressure to the pad but remained in atrial fibrillation. The cardioversion pads were repositioned and she underwent a 3rd cardioversion with 360 joules of synchronized biphasic energy again applying pressure to the pad, but unfortunately remained in atrial fibrillation. No further attempts were made. There were no complications. Will discuss further options with the patient. For now I recommend ongoing attempts at rate control and anticoagulation strategy, follow-up with Dr. Crews and possibly an special collections librarian. Estimated Blood Loss 0 Pathology None sent Complications No immediate complications Condition Stable Disposition Floor
[2021-05-30] MEDS: POTASSIUM CHLORIDE 20 MEQ TABLET.ER 40 MEQ BY MOUTH ×2 (15:50→18:23)
[2021-05-30] MEDS: FERROUS SULFATE 324 MG TABLET PO (15:51)
--- NOTE | 2021-05-30 16:02 | PM.PNCARD ---
Progress Note: A&P Assessment and Plan (1) Atrial fibrillation with rapid ventricular response: Code(s): I48.91 - Unspecified atrial fibrillation Status: Acute Assessment and Plan: Patient with a history of paroxysmal atrial fibrillation which has been controlled well with amiodarone, metoprolol and Xarelto. Presented with persistent atypical atrial flutter, now looks like an AFib, RVR. Medical management somewhat hampered by soft blood pressure, improved since losartan discontinued. Increased p.o. amiodarone to 400 mg BID, increased metoprolol Change diltiazem to 120 mg daily Continue Xarelto. Continue to pursue rate control strategy for now. Her rate is reasonable at rest. Her heart rate may improve as the higher dose amiodarone takes affect which may take a couple of weeks. Probably discharge tomorrow with close outpatient follow-up and a home monitor Would like to refer to an lighthouse keeper for consideration of other options such as AFib ablation or pacemaker plus AV node ablation. (2) Acute diastolic CHF (congestive heart failure): Code(s): I50.31 - Acute diastolic (congestive) heart failure Status: Acute Assessment and Plan: Acute on chronic diastolic heart failure due to AFib RVR Continue IV Lasix, increase to b.i.d. Hypokalemic, will supplement potassium and check daily BMP. (3) Mitral regurgitation: Code(s): I34.0 - Nonrheumatic mitral (valve) insufficiency Status: Acute Assessment and Plan: Moderate mitral regurgitation. Will need to be re-evaluated in the future by her usual box nailer. Patient says that Dr. Matson is too far and she would like to follow-up at our office with [facility]. (4) Hypertension: Code(s): I10 - Essential (primary) hypertension Status: Acute Assessment and Plan: Blood pressure is running low now but better since losartan DC'd. (5) ANTONIA (obstructive sleep apnea): Code(s): G47.33 - Obstructive sleep apnea (adult) (pediatric) Status: Acute Assessment and Plan: Compliant with CPAP (6) Morbid obesity: Code(s): E66.01 - Morbid (severe) obesity due to excess calories Status: Acute Assessment and Plan: With ANTONIA, compliant with CPAP Subjective Date/time seen: 05/30/21 16:02 Interval history: Patient with a history of atrial fibrillation well control was Xarelto and amiodarone, admitted with recurrent persistent AFib RVR and acute on chronic diastolic CHF. She has been treated with a diltiazem drip, increasing her metoprolol and and increasing her amiodarone Date of service 05/30/2021: Patient unfortunately failed her cardioversion today and remains in AFib. At rest it is fairly well controlled, 8200 beats per minute but with minor activity she will go up in the 120s and feel short of breath. Review of Systems Constitutional: Constitutional: Reports fatigue and Reports lethargy ENT: Denies epistaxis Cardiovascular: Cardiovascular: Denies leg edema and Denies palpitations Respiratory: Respiratory: Reports dyspnea on exertion Gastrointestinal: Gastrointestinal: Denies abdominal pain Genitourinary: Genitourinary: Denies hematuria Musculoskeletal: Musculoskeletal: Reports stiffness Neurologic: Reports system reviewed and no additional complaints, except as documented Psychiatric: Psychiatric: Reports no additional psychiatric complaints Exam Narrative: Unhappy and upset that the cardioversion did not work Const: General: comfortable and no acute distress HENMT: General nose exam: no epistaxis Eyes: EOM: EOMs intact bilaterally Neck: Neck: supple Resp: Effort & Inspection: normal respiratory effort Auscultation: clear to auscultation bilaterally Other: Distant breath sounds Cardio: Rate: regular rate Rhythm: abnormal rhythm irregularly irregular Skin: General skin exam: no rashes or lesions noted Neuro: Cognition (Neur
--- NOTE | 2021-05-30 16:03 | PC.NURSE ---
Returned from cardioversion. Gaming Department Head at the bedside.
[2021-05-30] MEDS: HYDROCORTISONE 2.5% CREAM 30 GM TUBE 1 APPLIC TOPICAL (17:04)
[2021-05-30] MEDS: LIDOCAINE 5% PATCH 1 PATCH TRANSDERM (17:05)
[2021-05-30 17:26] LABS: Glucose Point of Care 181 mg/dl (65-105)
[2021-05-30] MEDS: AMIODARONE HCL 200 MG TABLET 400 MG PO (18:23)
[2021-05-30] MEDS: RIVAROXABAN 20 MG TABLET PO (20:18)
[2021-05-30] MEDS: traZODone HCL 50 MG TABLET 100 MG PO (20:18)
[2021-05-30] MEDS: METOPROLOL TARTRATE 50 MG TAB 150 MG PO (20:18)
[2021-05-30 20:20] LABS: Glucose Point of Care 168 mg/dl (65-105)
[2021-05-31] VITALS (10 sets, daily range): BP systolic 100–124; BP diastolic 59–92; PULSE 80–122; RESP 18–20; TEMP 36.1–36.8; O2SAT 93–100
[2021-05-31 05:51] LABS: Basophils Absolute Auto 0.1 K/mm3 (0.0-0.1); Basophils Percent Auto 0.7 % (0.2-1.2); Eosinophils Absolute Auto 0.2 K/mm3 (0-0.3); Eosinophils Percent Auto 1.8 % (0-4.4); Hematocrit 36.5 % (37.0-47.0); Hemoglobin 11.2 g/dL (12.0-15.0); Immature Granulocyte Absolute 0.05 K/mm3 (0.00-0.031); Immature Granulocyte Percent A 0.6 % (0-0.5); Lymphocytes Percent Auto 29.4 % (18.3-44.2); Mean Corpuscular HGB Conc 30.7 g/dl (32-36); Mean Corpuscular Hemoglobin 26.4 pg (26-34); Mean Corpuscular Volume 86.1 fl (80-100); Monocytes Absolute Auto 0.7 K/mm3 (0.1-0.6); Monocytes Percent Auto 8.7 % (2.6-8.5); Neutrophils Absolute Auto 4.8 K/mm3 (1.3-6.7); Neutrophils Percent Auto 58.8 % (45.5-73.1); Platelet Count Result 254 k/mm3 (150-375); Red Blood Count 4.24 M/mm3 (4.2-5.4); Red Cell Distribution Width 13.8 % (11.5-14.5); White Blood Count 8.2 K/mm3 (4.5-10.0)
[2021-05-31 06:07] LABS: Alanine Aminotransferase 36 U/L (4-35); Albumin Level 3.7 g/dL (3.5-5.1); Alkaline Phosphatase 57 U/L (38-126); Anion Gap 6 mmol/L (8-16); Aspartate Amino Transferase 35 U/L (14-36); Bilirubin,Total 0.7 mg/dL (0.2-1.3); Blood Urea Nitrogen 17 mg/dL (7-17); Calcium 8.1 mg/dL (8.4-10.2); Carbon Dioxide 26 mmol/L (22-30); Chloride 103 mmol/L (98-107); Estimated CRCL calculation 98 ml/min; Estimated Glomerular Filt Rate > 60; Glucose 148 mg/dL (65-110); Potassium 3.6 mmol/L (3.4-5.0); Sodium 135 mmol/L (137-145)
[2021-05-31 08:22] LABS: Glucose Point of Care 159 mg/dl (65-105)
[2021-05-31] MEDS: FERROUS SULFATE 324 MG TABLET PO (09:26)
[2021-05-31] MEDS: AMIODARONE HCL 200 MG TABLET 400 MG PO (09:26)
[2021-05-31] MEDS: CYANOCOBALAMIN 500 MCG TABLET PO (09:27)
[2021-05-31] MEDS: ATORVASTATIN 10 MG TABLET PO (09:27)
[2021-05-31] MEDS: CHOLECALCIFEROL 1,000 UNITS TABLET 1000 UNITS PO (09:28)
[2021-05-31] MEDS: HYDROCORTISONE 2.5% CREAM 30 GM TUBE 1 APPLIC TOPICAL (09:28)
[2021-05-31] MEDS: METOPROLOL TARTRATE 50 MG TAB 150 MG PO (09:28)
[2021-05-31] MEDS: ESCITALOPRAM OXALATE 10 MG TABLET 20 MG PO (09:28)
[2021-05-31] MEDS: SPIRONOLACTONE 50 MG TABLET PO (09:28)
[2021-05-31] MEDS: FUROSEMIDE INJ 40 MG/4 ML VIAL IV PUSH (09:28)
--- NOTE | 2021-05-31 10:06 | PM.DS ---
DS: Admitting Diagnosis Discharge Date 05/31/2021 Admitting Diagnosis AFib RVR Chronic heart failure, diastolic dysfunction Diabetes mellitus type 2 without complication DS: Discharge Diagnosis Discharge Diagnosis (1) Atrial fibrillation with rapid ventricular response: Code(s): I48.91 - Unspecified atrial fibrillation Status: Acute Assessment and Plan: -Patient with a history of paroxysmal atrial fibrillation which has been controlled well with amiodarone, metoprolol and Xarelto. -Presented with persistent atypical atrial flutter, now looks like an AFib, RVR. Not well controlled at this time. Management per cardiology as follows: -Hold losartan at this time. -Continue diltiazem 10 milligrams/hour -Amiodarone bolus -Increase p.o. amiodarone to 400 mg BID -Continue Xarelto; has not missed any doses. -Depending on the patient's course we may consider cardioversion during this admission (2) Congestive heart failure of unknown etiology: Code(s): I50.9 - Heart failure, unspecified Status: Deleted Assessment and Plan: -Chest x-ray does show pulmonary vascular congestion. -At this time patient's acute congestive heart failure could be secondary to her atrial fibrillation with rapid ventricular response. -Patient states she does not take her Lasix all the time at home because she often forgets it. Echocardiogram revealed an LVEF of 55-60% with abnormal diastolic dysfunction -Will also attempt to get all cardiology records from [facility]. -Cardiology has been consult and do appreciate any further recommendations. (3) Type 2 diabetes mellitus without complication, without long-term current use of insulin: Code(s): E11.9 - Type 2 diabetes mellitus without complications Status: Acute Assessment and Plan: -Patient states she has been taking metformin at home and was recently prescribed Farxiga, but she never started this medication secondary to cost. Insulin Lispro sliding scale, Accu-checks qAc and HS and Hold oral hypoglycemics (4) Hypokalemia: Code(s): E87.6 - Hypokalemia Status: Acute Assessment and Plan: -monitor and replace as indicated -daily BMP -check mag in AM DS: Summary Hospital Course Reason for hospitalization: AFib RVR Hospital Course: The patient is a 55-year-old female with a past medical history of AFib, diabetes mellitus type 2, depression, dyslipidemia, ANTONIA, and chronic pain. Patient also reports a remote history of congestive heart failure. An echocardiogram was performed during her hospitalization which revealed diastolic dysfunction with normal LVEF. Patient reports that she is compliant with most of her medications, however is unable to afford some diabetic medications and is only been taking her metformin. Her primary care physician is working on this issue with insurance. However the patient came to the emergency department due to complaints of shortness of breath x1 week. The patient reports that she has known AFib and follows a rug shampooer at [facility]. However over the past several weeks the patient has increasing shortness of breath the last few days the chest heaviness has become unbearable. Patient typically states her AFib is acting up when she gets this heaviness feeling in her chest. Patient denies any palpitations and has never had palpitations with her atrial fibrillation. Patient also reports she occasionally forgets her oral Lasix. A discussion about medication compliance took place. Patient also believes she has been off her amiodarone for approximately 1 week secondary to not realizing that she had run out of this medication. Patient denied any lightheadedness, dizziness, syncopal episodes, orthopnea while in the emergency department. She did endorse bilateral lower extremities but this is chronic issue for her plus the patient did not take her furosemide for severa
[2021-05-31] MEDS: LANSOPRAZOLE ORAL SUSP 30 MG/10 ML ORAL.SUSP PO (10:08)
--- NOTE | 2021-05-31 10:33 | P.PNAN_ITS ---
Anes - Prog Note Post-Op Date/Time: 05/31/21 10:33 Cardiovascular status: normal Respiratory status: normal Airway patency: baseline Mental status: baseline Post-Op hydration status: normal Vital Signs: Last Vital Signs Temp 36.2 C L 05/31/21 08:00 Pulse 80 05/31/21 09:28 Resp 18 05/31/21 08:00 BP 119/80 05/31/21 08:00 Pulse Ox 100 05/31/21 08:00 Pain Score (VAS): 0 I/O: Intake & Output 05/30/21 05/31/21 05/31/21 23:59 07:59 15:59 Intake Total 880 500 240 Output Total 2400 425 Balance 880 -1900 -185 Laboratory Tests 05/31/21 05:34 05/31/21 05:34 05/30/21 05/30/21 05/30/21 12:10 17:15 19:44 WBC RBC Hgb Hct MCV MCH MCHC RDW Plt Count MPV Immature Gran % (Auto) Neut % (Auto) Lymph % (Auto) [place] % (Auto) Eos % (Auto) Baso % (Auto) Lymph # (Auto) [place] # (Auto) Eos # (Auto) Baso # (Auto) Abs Immat Gran (auto) Absolute Neuts (auto) Absolute Nucleated RBC Nucleated RBC % Sodium Potassium Chloride Carbon Dioxide Anion Gap BUN Creatinine Estim Creat Clear Calc Estimated GFR Glucose POC Capillary Glucose 166 H 181 H 168 H Calcium Total Bilirubin AST ALT Alkaline Phosphatase Total Protein Albumin 05/31/21 05/31/21 05/31/21 05:34 05:34 07:57 WBC 8.2 RBC 4.24 Hgb 11.2 L Hct 36.5 L MCV 86.1 MCH 26.4 MCHC 30.7 L RDW 13.8 Plt Count 254 MPV 10.0 Immature Gran % (Auto) 0.6 H Neut % (Auto) 58.8 Lymph % (Auto) 29.4 [place] % (Auto) 8.7 H Eos % (Auto) 1.8 Baso % (Auto) 0.7 Lymph # (Auto) 2.40 [place] # (Auto) 0.7 H Eos # (Auto) 0.2 Baso # (Auto) 0.1 Abs Immat Gran (auto) 0.05 H Absolute Neuts (auto) 4.8 Absolute Nucleated RBC 0.0 Nucleated RBC % 0.0 Sodium 135 L Potassium 3.6 Chloride 103 Carbon Dioxide 26 Anion Gap 6 L BUN 17 Creatinine 0.90 Estim Creat Clear Calc 98 Estimated GFR > 60 Glucose 148 H POC Capillary Glucose 159 H Calcium 8.1 L Total Bilirubin 0.7 AST 35 ALT 36 H Alkaline Phosphatase 57 Total Protein 6.0 L Albumin 3.7 Post-procedural complaints: none Patient Feedback: Patient satisfied with anesthetic care.
--- NOTE | 2021-05-31 10:43 | PCCCNOTE ---
On 05/31/21, the student, [Lois Streeter], provided care and completed [facility] documentation on this patient. I have reviewed the student's documentation and agree with the findings.
== END 2021-05-31 12:45 | disposition home or self-care (01) | DRG 308 ==
LOC: ANHED 15:30 → ANHIMU 15:44
PROVIDERS: Internal Medicine Cardiovascular Disease; Nurse Practitioner Adult Health; Physician Assistant; Admitting Provider Internal Medicine; Emergency Provider Emergency Medicine; PCP Family Medicine; Visit Provider Nurse Practitioner Family
PROC: 5A2204Z Restoration of Cardiac Rhythm, Single (ICD-10-PCS; principal; 2021-05-30 14:00)
DX: I48.19 Other persistent atrial fibrillation (principal); I50.33 Acute on chronic diastolic (congestive) heart failure; Z68.43 Body mass index [BMI] 50.0-59.9, adult; R06.02 Shortness of breath; I11.0 Hypertensive heart disease with heart failure; Z20.822 Contact with and (suspected) exposure to COVID-19; E87.6 Hypokalemia; E66.01 Morbid (severe) obesity due to excess calories; E78.5 Hyperlipidemia, unspecified; E11.42 Type 2 diabetes mellitus with diabetic polyneuropathy; F32.A Depression, unspecified; G89.29 Other chronic pain; G47.33 Obstructive sleep apnea (adult) (pediatric); I34.0 Nonrheumatic mitral (valve) insufficiency; R60.0 Localized edema; M54.42 Lumbago with sciatica, left side; M54.41 Lumbago with sciatica, right side; M19.90 Unspecified osteoarthritis, unspecified site; Z79.84 Long term (current) use of oral hypoglycemic drugs; Z86.16 Personal history of COVID-19; Z79.01 Long term (current) use of anticoagulants; Z99.89 Dependence on other enabling machines and devices
CPT/HCPCS: 36415; 71045; 80048; 80053; 81001; 82948; 83690; 83735; 83880; 84443; 84484; 85025; 85610; 85730; 87804; 92960; 93005; 93306; 94660; 96365; 96366; 96375; 96376; 99285; A9270; C9803; G0378; J0282; J1815; J1940; U0003; U0005

== ENCOUNTER 2021-10-26 00:50 | Day surgery (SDC) | payer BC, SELFPAY ==
[2021-10-25 13:03] VITALS: BMI 52.9
--- NOTE | 2021-10-25 13:12 | PC.NURSE ---
Report to the Outpatient Waiting Room, entrance under the green pavilion located off [facility], at time __1145 on date __10/26/21 . OR Time: __1345 . - You and your visitor will be asked a series of questions to screen for COVID 19 for your protection. - Only one visitor is allowed at this time. - The patient visitor is requested to leave or wait in car when not with patient. - A mask is required within the hospital. Patients may have clear liquids (water, carbonated beverages, clear teas, apple juice) until 3 hours prior to surgery with a maximum of 20 ounces. - No food from midnight until time of surgery - Infants may have breast milk until 4 hours before surgery, infant formula 6 hours prior to surgery. - Children will be allowed to drink immediately following surgery. If applicable, please bring a bottle or sippy cup to assist with drinking. Juice, water, soda, and popsicles are readily available. For infants on formula, please bring formula the day of surgery. Pacifiers are allowed. Take the following medications with a SIP of water the morning of surgery: _METOPROLOL, TRAMADOL IF NEEDED__ Medications to discontinue per physician GABI PER DR. SILVA'S INSTRUCTIONS Date to take last dose Please no make-up, nail sinhala, hairspray, perfume, deodorant, or body powder the day of surgery. No jewelry (including any body piercings) or valuables the day of surgery, leave them at home. Please take a shower or bath the night before, or the morning of, surgery with an antibacterial soap. Wear comfortable, loose fitting clothing. Children are encouraged to wear pajamas. - Jewelry must be removed prior to entering the operating room. Rings and piercings that are not removed may be cut off. - The hospital will not accept responsibility for valuables. - Please leave all valuables, including medications, at home the day of surgery. If you are going home after surgery, a licensed driver trainee must drive you home. - NO public transportation without another adult. - We recommend that an adult stay with you for 24 hours following discharge. - We also recommend that you do not drive, make important decision, drink alcoholic beverages, or take any drugs that were not prescribed by your health care provider for at least 24 hours after your discharge time. For Pediatric surgeries, we recommend two adults accompany the child home (only one inside the building at this time). Follow any additional instructions given to you from your surgeon. If you or anyone in your household have experienced Covid symptoms in the past week, please notify your surgeon or the nurse liaison at the phone number below for possible testing. Telephone instructions given to PT and asked if any additional questions and then verbalized understanding. Patient advised to call surgeon office or pre surgery nurse liaison [phone] if any additional questions.
--- NOTE | 2021-10-25 16:25 | PM.IMHP ---
H&P: HPI History of Present Illness Date/Time: 10/25/21 16:25 Chief Complaint: Postmenopausal bleeding Narrative: This is a 56-year-old female status post ablation many years ago who was seen complaining of vaginal bleeding. She underwent ultrasound which showed the endometrial lining to measure approximately 7mm in depth. The there is a possible fibroid seen on ultrasound with the uterus being mildly enlarged. She is offered hysteroscopy and dilatation and curettage for diagnosis. Risks and benefits were reviewed she received the ACOG handout entitled hysteroscopy as well as dilatation and curettage respectively. She had all questions answered. She asked to proceed [facility] Past Medical History Medical History Acute non-recurrent maxillary sinusitis Acute pharyngitis, unspecified Body mass index (BMI) of 50-59.9 in adult (01/06/19) Breast cancer screening by mammogram CHF (congestive heart failure) Chronic left hip pain Chronic low back pain with left-sided sciatica Chronic low back pain with right-sided sciatica COVID-19 Diabetes A1c 05/20/20 was 7.3 Diabetic peripheral neuropathy associated with type 2 diabetes mellitus (09/27/20) Hip pain, right Hypokalemia Irregular menses FSH 9.2, LH 7.1, estradiol 82 on 02/28/2021 Microalbuminuria due to type 2 diabetes mellitus (09/19/20) Microalbumin ratio 31 Morbid obesity with BMI of 50.0-59.9, adult Muscle spasm of both lower legs ANTONIA (obstructive sleep apnea) 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 Does computer work. 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 Gender identity (if verbalized by the patient): Female Spiritual care concerns: No Meds Home Medications and Allergies Home Medications Medication Instructions Recorded Confirmed Type albuterol sulfate 90 mcg/actuation 2 puff inhalation Q4H PRN 01/19/19 10/25/21 Rx aerosol inhaler (ProAir HFA) shortness of breath #18 grams blood sugar diagnostic (Accu-Chek #10 ea 02/16/19 06/07/21 History Rosa Plus test strips) cyanocobalamin (vitamin B-12) 500 500 mcg PO DAILY 02/16/19 10/25/21 History mcg tablet ferrous sulfate 325 mg (65 mg 325 mg PO DAILY 02/16/19 10/25/21 History iron) tablet spironolactone 50 mg tablet 50 mg PO DAILY 05/11/19 10/25/21 History cholecalciferol (vitamin D3) 50 1,000 unit PO DAILY 09/15/19 10/25/21 History mcg (2,000 unit) tablet rivaroxaban 20 mg tablet (Xarelto) 20 mg PO QPM 09/27/20 10/25/21 History atorvastatin 10 mg tablet 10 mg PO DAILY #90 tabs 01/02/21 10/25/21 Rx furosemide 40 mg tablet (Lasix) 40 mg PO BID #180 tabs 04/16/21 10/25/21 Rx potassium chloride 20 mEq See Rx Instructions .Route 04/16/21 10/25/21 Rx tablet,extended .COMPLEX #180 tabs release(part/cryst) (Klor-Con M) blood sugar diagnostic #100 ea 05/11/21 06/07/21 Rx tramadol 50 mg tablet See Rx Instructions PO Q6H PRN 05/15/21 10/25/21 Rx pain #50 tabs trazodone 50 mg tablet 50 - 100 mg PO HS 05/28/21
--- NOTE | 2021-10-26 06:35 | WPDHPUPDATE1 ---
History and Physical Update Update Date/Time: 10/26/21 06:35 History and Physical has been reviewed, including an updated exam of the patient. There are NO changes in the patient's condition. Risks, benefits, and alternatives have been discussed and questions answered. Patient agrees to proceed with procedure.
[2021-10-26 11:56] VITALS: BP 170/84; PULSE 113; RESP 20; TEMP 36.5; O2SAT 100
[2021-10-26] MEDS: ACETAMINOPHEN 500 MG TABLET 1000 MG PO (12:10)
[2021-10-26] MEDS: LACTATED RINGERS 1,000 ML 30 ML IV CONT (12:10)
--- NOTE | 2021-10-26 12:11 | WPDANESEPPF ---
Anes - Initial Pre Proc Eval Procedure: Operation Date: 10/26/21 13:45 Proposed Procedures p Hysteroscopy with Dilation and Curettage - Tr Landers MD Date/Time: 10/26/21 12:11 Surgeon: Tr Landers MD Pre Op Diagnosis: Post Menopausal Bleeding Patient Data Age: 56 Gender: F Height: 1.7 m Weight: 153 kg Last Vital Signs Temp 36.5 C 10/26/21 11:56 Pulse 113 H 10/26/21 11:56 Resp 20 10/26/21 11:56 BP 170/84 H 10/26/21 11:56 Pulse Ox 100 10/26/21 11:56 O2 Del Method Room Air 10/26/21 11:56 Allergies Allergy/AdvReac Type Severity Reaction Status Date / Time No Known Allergies Allergy Verified 10/26/21 11:50 Home Medications Medication Instructions Recorded Confirmed Type albuterol sulfate 90 mcg/actuation 2 puff inhalation Q4H PRN 01/19/19 10/25/21 Rx aerosol inhaler (ProAir HFA) shortness of breath #18 grams blood sugar diagnostic (Accu-Chek #10 ea 02/16/19 06/07/21 History Rosa Plus test strips) cyanocobalamin (vitamin B-12) 500 500 mcg PO DAILY 02/16/19 10/25/21 History mcg tablet ferrous sulfate 325 mg (65 mg 325 mg PO DAILY 02/16/19 10/25/21 History iron) tablet spironolactone 50 mg tablet 50 mg PO DAILY 05/11/19 10/25/21 History cholecalciferol (vitamin D3) 50 1,000 unit PO DAILY 09/15/19 10/25/21 History mcg (2,000 unit) tablet rivaroxaban 20 mg tablet (Xarelto) 20 mg PO QPM 09/27/20 10/25/21 History atorvastatin 10 mg tablet 10 mg PO DAILY #90 tabs 01/02/21 10/25/21 Rx furosemide 40 mg tablet (Lasix) 40 mg PO BID #180 tabs 04/16/21 10/25/21 Rx potassium chloride 20 mEq See Rx Instructions .Route 04/16/21 10/25/21 Rx tablet,extended .COMPLEX #180 tabs release(part/cryst) (Klor-Con M) blood sugar diagnostic #100 ea 05/11/21 06/07/21 Rx tramadol 50 mg tablet See Rx Instructions PO Q6H PRN 05/15/21 10/25/21 Rx pain #50 tabs trazodone 50 mg tablet 50 - 100 mg PO HS 05/28/21 10/25/21 History diltiazem HCl 120 mg capsule,24 120 mg PO QPM #90 caps 06/07/21 10/25/21 Rx hr,extended release semaglutide 0.25 mg or 0.5 mg (2 0.25 mg subcut WEEKLY 06/07/21 10/25/21 History mg/1.5 mL) subcutaneous pen injector (Ozempic) lansoprazole 30 mg capsule,delayed 30 mg PO DAILY #90 caps 06/08/21 10/25/21 Rx release amiodarone 200 mg tablet (Pacerone) 400 mg PO BID 30 days #360 tabs 06/13/21 10/25/21 Rx escitalopram oxalate 20 mg tablet 20 mg PO DAILY #90 tabs 08/10/21 10/25/21 Rx metoprolol succinate 25 mg 75 mg PO BID #540 tabs 09/06/21 10/25/21 Rx tablet,extended release 24 hr metformin 500 mg tablet,extended 500 mg PO BID #90 tabs 09/12/21 10/25/21 Rx release 24 hr medroxyprogesterone 10 mg tablet 10 mg PO DAILY 10/25/21 10/25/21 History (Provera) hydrocodone 5 mg-acetaminophen 325 1 tablet PO Q4H PRN pain #20 tabs 10/26/21 Rx mg tablet Laboratory Tests 10/26/21 10/26/21 12:06 12:06 Hgb Pending Hct Pending Sodium Pending Potassium Pending Chloride Pending Carbon Dioxide Pending Anion Gap Pending BUN Pending Creatinine Pending Estim Creat Clear Calc Pending Estimated GFR Pending Glucose Pending Calcium Pending Patient hx anesthesia problems: none Family hx anesthesia problems: none Results Review: All pre-operative results and documents have been reviewed as part of the pre-operative evaluation. [facility] Past Medical History Medical History Acute non-recurrent maxillary sinusitis Acute pharyngitis, unspecified Body mass index (BMI) of 50-59.9 in adult (01/06/19) Breast cancer screening by mammogram CHF (congestive heart failure) Chronic left hip pain Chronic low back pain with left-sided sciatica Chronic low back pain with right-sided sciatica COVID-19 Diabetes A1c 05/20/20 was 7.3 Diabetic peripheral neuropathy associated wit
[2021-10-26 12:13] LABS: Hematocrit 29.6 % (37.0-47.0); Hemoglobin 9.2 g/dL (12.0-15.0)
[2021-10-26 12:22] LABS: Anion Gap 11 mmol/L (8-16); Blood Urea Nitrogen 14 mg/dL (7-17); Carbon Dioxide 26 mmol/L (22-30); Chloride 101 mmol/L (98-107); Estimated CRCL calculation 95 ml/min; Estimated Glomerular Filt Rate > 60; Glucose 154 mg/dL (65-110); Potassium 4.1 mmol/L (3.4-5.0); Sodium 138 mmol/L (137-145)
--- NOTE | 2021-10-26 14:44 | W.PM.PROC2 ---
Procedure Note - Detailed Date of Procedure 10/26/21 Pre-op Diagnosis Post Menopausal Bleeding Post-op Diagnosis Same Procedure Performed Hysteroscopy / dilatation and curettage Surgeon Tr Landers MD Anesthesia MAC and Local Indications S a 56-year-old female status post ablation many years ago who had postmenopausal bleeding. 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 Description of Procedure The patient was prepped draped in normal sterile fashion placed in dorsal lithotomy position. Under excellent IV sedation weighted speculum placed in posterior fornix vagina. Anterior lip of the cervix grasped with a single-tooth tenaculum and 2 point polyp with 1% xylocaine anesthesia placed at 2, 4, 8, 10:00 a.m. of the cervix. Uterus sounded to 10cm. Serial dilatation with fragmented dilators performed. This was followed by passage of the 5mm visualizing hysteroscope using normal saline as visualizing medium. There appeared to be a septum although this could be related to the previous ablation. The thick irregular tissue was seen with few clots. The uterus was then scraped over the entire 360? and both cornua removing a moderate amount of tissue. When a good grating sound was heard the instruments were repeat removed. The patient was awakened went recovery in satisfactory condition. All sponge, needle, instrument counts were correct. There were no immediate complications Estimated Blood Loss 5 Drains No Packing No Pathology Yes Complications No immediate complications Condition Stable Disposition PACU
[2021-10-26 14:46] VITALS: BP 116/54; PULSE 64; RESP 12; O2SAT 98
[2021-10-26 14:52] LABS: Glucose Point of Care 123 mg/dl (65-105)
[2021-10-26 15:15] VITALS: BP 98/64; PULSE 65; RESP 12; O2SAT 98
== END 2021-10-26 15:37 | disposition home or self-care (01) ==
PROVIDERS: Anesthesiology; PCP Family Medicine; Visit Provider Obstetrics & Gynecology
PROC: 0U5B8ZZ Destruction of Endometrium, Via Natural or Artificial Opening Endoscopic (ICD-10-PCS; CPT 58563; principal; 2021-10-26 13:45)
DX: N95.0 Postmenopausal bleeding (principal); E11.42 Type 2 diabetes mellitus with diabetic polyneuropathy; I50.9 Heart failure, unspecified; G89.29 Other chronic pain; G47.33 Obstructive sleep apnea (adult) (pediatric); E66.01 Morbid (severe) obesity due to excess calories; Z68.43 Body mass index [BMI] 50.0-59.9, adult; Z79.51 Long term (current) use of inhaled steroids; Z79.01 Long term (current) use of anticoagulants; Z79.899 Other long term (current) drug therapy; Z79.84 Long term (current) use of oral hypoglycemic drugs; Z79.891 Long term (current) use of opiate analgesic
CPT/HCPCS: 58558; 36415; 80048; 82948; 85014; 85018; 88305; A9270; J1100; J2250; J2405; J2704; J3010; J7120

== ENCOUNTER 2021-11-05 09:30 | Outpatient (CLI) | payer BC, SELFPAY ==
[2021-11-05 11:40] LABS: Alanine Aminotransferase 37 U/L (6-35); Albumin Level 4.1 g/dL (3.5-5.1); Alkaline Phosphatase 52 U/L (38-126); Anion Gap 9 mmol/L (8-16); Aspartate Amino Transferase 78 U/L (14-36); Bilirubin,Total 0.8 mg/dL (0.2-1.3); Blood Urea Nitrogen 16 mg/dL (7-17); Carbon Dioxide 23 mmol/L (22-30); Chloride 103 mmol/L (98-107); Estimated Glomerular Filt Rate > 60; Glucose 160 mg/dL (65-110); Potassium 4.9 mmol/L (3.4-5.0); Sodium 135 mmol/L (137-145)
== END 2021-11-05 09:31 | disposition home or self-care (01) ==
PROVIDERS: PCP Family Medicine; Visit Provider Internal Medicine Cardiovascular Disease
DX: Z79.899 Other long term (current) drug therapy (principal)
CPT/HCPCS: 36415; 80053; 84443

== ENCOUNTER 2022-12-19 15:03 | Outpatient (CLI) | payer BC, SELFPAY ==
--- NOTE | 2022-12-20 09:16 | WPDPFTINT ---
PFT Procedure Performed PFT Procedure Performed Plethysmography (Lung Vol) Diffusing Cap (DLCO) Flow Vol Loop Spirometry w/o Bronchodil PFT Interpretation Lung volumes were measured with the body plethysmography method. The diminished expiratory reserve volume is related to obesity. The remaining lung volumes are unremarkable. Spirometry showed normal expiratory flow rates and a normal FEV1 to FVC ratio of 84%. No post bronchodilator study carried out. Lung diffusion capacity within the normal range at 86% predicted. The flow-volume loop is unremarkable. Impression: Spirometry, lung volumes, and lung diffusion capacity all within the normal range.
== END 2022-12-19 15:04 | disposition home or self-care (01) ==
LOC: ANHPFT 15:04
PROVIDERS: PCP Family Medicine; Visit Provider Internal Medicine Cardiovascular Disease
DX: Z79.899 Other long term (current) drug therapy (principal)
CPT/HCPCS: 94375; 94726; 94729

== ENCOUNTER 2023-03-03 12:14 | Outpatient (CLI) | payer BC, SELFPAY ==
--- NOTE | ~2023-03-03 | XR_ITS ---
Left Knee Technique: AP, lateral, and sunrise views were obtained. Clinical History: Pain Findings: No fracture or dislocation is seen. Osseous alignment is anatomic. Tricompartmental degener ative spurring noted. Soft tissues are unremarkable. No joint effusion is seen. Impression: Tricompartmental degenerative spurring. Reviewed, dictated and finalized at [facility]. RIAL PROCESSOR Impression: Tricompartmental degenerative spurring.
== END 2023-03-03 12:15 | disposition home or self-care (01) ==
LOC: ANHLAB 12:17 → ANHIMG 12:23
PROVIDERS: PCP Family Medicine; Visit Provider Nurse Practitioner Family
DX: M25.562 Pain in left knee (principal)
CPT/HCPCS: 73562

== ENCOUNTER 2024-01-29 14:38 | Outpatient (CLI) | payer BC, SELFPAY ==
--- NOTE | ~2024-01-29 | XR_ITS ---
Clinical Indication: Amiodarone therapy PA and lateral views of the chest: Comparison: 05/28/2021 Findings: The lungs are clear, without evidence of focal consolidation or pleural effusion. Cardiome diastinal silhouette is within normal limits. Bones and soft tissues are unremarkable. Impression: Normal chest. Reviewed, dictated and finalized at location . OR MEDICAL DIRECTOR Impression: Normal chest.
== END 2024-01-29 14:39 | disposition home or self-care (01) ==
PROVIDERS: PCP Family Medicine; Visit Provider Nurse Practitioner Adult Health
DX: Z79.899 Other long term (current) drug therapy (principal)
CPT/HCPCS: 71046

== ENCOUNTER → 2024-02-10 01:27 | Day surgery (SDC) | payer BC, SELFPAY ==
[2024-02-09 11:58] VITALS: BMI 53.3
--- NOTE | 2024-02-10 10:58 | SUR.PREOP ---
pt. EKG obtained. pt. found to be in NSR. Dr. ortiz notifed and presented w/ ekg. pt. okay to go home.
--- NOTE | 2024-02-10 12:15 | ECG_ITS ---
Test Date: 2024-02-10 10:48:42 Measurements Intervals [place] Rate: 73 P: 51 MN: 168 QRS: 49 QRSD: 93 T: 67 QT: 427 QTc: 471 Interpretive Statements SINUS RHYTHM POSSIBLE LEFT ATRIAL ENLARGEMENT INCOMPLETE RIGHT BUNDLE BRANCH BLOCK BASELINE ARTIFACT- I, II, III, AVR, AVL ,AVF, V1-V6 BORDERLINE ECG No previous ECG available for comparison Electronically Signed On 02-10-2024 12:07:10 DIRECTOR EMBALMER by Yasir Randall D.O.
== END ==
PROVIDERS: PCP Family Medicine; Visit Provider Internal Medicine
PROC: 5A2204Z Restoration of Cardiac Rhythm, Single (ICD-10-PCS; principal; 2024-02-10 12:00)
DX: I48.92 Unspecified atrial flutter (principal); I48.0 Paroxysmal atrial fibrillation; I48.4 Atypical atrial flutter; I45.10 Unspecified right bundle-branch block; G47.30 Sleep apnea, unspecified; Z53.8 Procedure and treatment not carried out for other reasons; Z79.84 Long term (current) use of oral hypoglycemic drugs; Z79.01 Long term (current) use of anticoagulants; Z79.891 Long term (current) use of opiate analgesic
CPT/HCPCS: 99211; G0463

== ENCOUNTER 2024-06-25 01:33 | Day surgery (SDC) | payer BC, SELFPAY ==
[2024-06-17 15:57] VITALS: BMI 53.2
--- OUTSIDE RECORDS SUMMARY | 2024-06-25 01:36 | XMS_ITS | Referral Summary ---
Author Organization [place] [address] [place] [phone] Care Team Providers Care Marketing Information Analyst Name Role Phone Misael Fofana MD Primary Care Provider [phone] Encounters Date Type Department Care Team Description 06/24/2024 8:15 AM CDT Office Visit [facility] Medical [facility] [address] [place] [address] [address] [place] [phone] Steven Blair MD Paroxysmal atrial fibrillation (HCC) (Primary Dx); Atypical atrial flutter (HCC) 04/15/2024 Telephone [facility] [address] [place] [address] [place] [phone] mAparo Acevedo NP 04/01/2024 10:15 AM PHOTOGRAPHIC PLATEMAKER Office Visit [facility] [address] [place] [address] [place] [phone] Steven Blair MD Paroxysmal atrial fibrillation (HCC) (Primary Dx); Atypical atrial flutter (HCC) from Last 3 Months Allergies No known active allergies Medications escitalopram (LEXAPRO) 20 mg tablet 2 Active lansoprazole (PREVACID) 30 mg capsule 2 Active metFORMIN (GLUCOPHAGE) 500 mg tablet Take 2 tablets (1,000 mg total) by mouth daily Active spironolactone (ALDACTONE) 50 mg tablet 2 Active traZODone (DESYREL) 50 mg tablet 2 Active traMADoL (ULTRAM) 50 mg tablet 2 Active atorvastatin (LIPITOR) 10 mg tablet 2 Active losartan (COZAAR) 50 mg tablet 2 Active cholecalciferol (VITAMIN D-3) 1,000 unit capsule Take 1 capsule (1,000 Units total) by mouth daily Active vitamin b complex tablet Take 1 tablet by mouth daily Active magnesium chloride 71.5 mg tablet,delayed release (DR/EC) Take by mouth Active potassium chloride ER (KLOR-CON) 20 mEq CR tablet Take 1 tablet (20 mEq total) by mouth 2 (two) times a day Active ferrous fumarate 325 mg (106 mg iron) tablet Take 1 tablet (325 mg total) by mouth daily with breakfast Active Ozempic 2 mg/dose (8 mg/3 mL) pen injector injection Inject 2 mg under the skin once a week 4 Active furosemide (LASIX) 40 mg tabletIndications :Essential hypertension Take 2 tablets (80 mg total) by mouth daily 180 tablet 3 4 Active rivaroxaban (Xarelto) 20 mg tablet Take 1 tablet (20 mg total) by mouth daily 90 tablet 2 4 Active sotaloL (BETAPACE) 120 mg tablet Take 1 tablet (120 mg total) by mouth 2 (two) times a day 180 tablet 2 5 09/29/19 25 Active zolpidem (AMBIEN) 10 mg tablet 0.5 tablets (5 mg total) 5 Active Active Problems Problem Noted Date Diagnosed Date Severe obesity 11/11/2023 Chronic anticoagulation 08/06/2022 Medication monitoring encounter 11/11/2021 H/O CHF 11/11/2021 Body mass index (BMI) 50.0-59.9, adult 2 Atypical atrial flutter 11/05/2021 Essential hypertension 11/05/2021 Hyperlipidemia associated with type 2 diabetes m karenaitus 11/05/2021 ANTONIA (obstructive sleep apnea) 11/05/2021 Class 3 obesity 11/05/2021 Paroxysmal atrial fibrillation 08/10/2021 buttermaker continuous churn current use of amiodarone 08/10/2021 Social History Tobacco Use Types Packs/Day Years Used Date Smoking Tobacco: Never Tobacco Cessation:Counseling Given: Not Answered AUDIT-C Answer Date Recorded Q1: How often do you have a drink containing alc ohol? Monthly or less 08/08/2021 Q2: How many drinks containi ng alcohol do you have on a typical day when you are drinking? 1 or 2 08/08/2021 Q3: How often do you have si x or more drinks on one occasion? Never 08/08/2021 Comments Unknown Sex and Gender Information Value Date Recorded Sex Assigned at Not on file Legal Sex Female 2:43 AM PHOTOGRAPHIC PLATEMAKER Gender Identity Not on file Sexual Orientation Not on file Last Filed Vital Signs Vital Sign Reading Time Taken Comments Blood Pressure 132/74 06/24/2024 8:02 AM CDT Pulse 69 06/24/2024 8:02 AM CDT Temperature - - Respiratory Rate 16 08/06/2022 11:14 AM CDT Oxygen Saturation 99% 06/24/2024 8:02 AM CDT Inhaled Oxygen Concentration - - Weight 150 kg (330 lb 9.6 oz) 06/24/2024 8:02 AM CDT Height 170.2 cm (5' 7 ) 06/24/2024 8:02 AM CDT Body Mass Index 51.78 06/24/2024 8:02 AM CDT Plan of Treatment Not on file Procedures Procedure Name Priority Date/Time Associated Diagnosis Comments POCT LIPID PANEL Routine 06/24/2024 8:56 AM CDT Paroxysmal atrial fibrillation (HCC) TSH W/REFL FT4 Routine 04/13/2024 10:08 AM PHOTOGRAPHIC PLATEMAKER COMPREHENSIVE METABOLIC PANEL Routine 04/13/2024 10:08 AM PHOTOGRAPHIC PLATEMAKER buttermaker continuous churn current use of amiodarone ECG 12-LEAD Routine 04/01/2024 4:01 PM PHOTOGRAPHIC PLATEMAKER Paroxysmal atrial fibrillation (HCC) SCREENING MAMMOGRAM 2D BILATERAL Schedule Routine, Read Routine (OP Routine) 12/29/2018 9:48 AM CDT Encounter for screening mammogram for malignant neoplasm of breast from Last 3 Months or Most Recently Relevant to Health Maintenance Results * POCT lipid panel (06/24/2024 8:56 AM CDT) Cholesterol, POC 157 mg/dL Comment:GLU = 178 HDL, POC 29 mg/dL Triglycerides, POC 204 mg/dL LDL Cholesterol POC 87 mg/dL Chol/HDL Ratio, POC 3.0 Non-HDL Cholesterol, POC 128 mg/dL Cholesterol Total, POC 157 mg/dL Capillary blood 06/24/2024 8 :56 AM CDT Steven Blair MD POINT OF CARE TEST ORDER YESI Final Result * TSH W/REFL FT4 (04/13/2024 10:08 AM PHOTOGRAPHIC PLATEMAKER) TSH 2.22 0.40 - 4.50 mIU/L [facility] 04/13/2024 10:0 8 AM PHOTOGRAPHIC PLATEMAKER 04/13/2024 10:09 AM PHOTOGRAPHIC PLATEMAKER Narrative [facility] - 04/15/2024 1:44 AM PHOTOGRAPHIC PLATEMAKER FASTING:YES FASTING: YES Amparo Acevedo NP LAB BLOOD ORDERABLES Sheri l Result [facility] [address] [place] [address] * (ABNORMAL) Comprehensive metabolic panel (04/13/2024 10:08 AM PHOTOGRAPHIC PLATEMAKER) Glucose 132(H) 65 - 99 mg/dL [facility] Comment: Fasting reference interval For someone without known diabetes, a glucose value >125 mg/dL indicates that they may have diabetes and this should be confirmed with a follow-up test. BUN 14 7 - 25 mg/dL [facility] Creatinine 0.95 0.50 - 1.03 mg/dL [facility] eGFR 69 > OR = 60 mL/min/1.7 3m2 [facility] BUN/creat ratio SEE NOTE: 6 - 22 (calc) [facility] Comment: Not Reported: BUN and Creatinine are within reference range. Sodium 140 135 - 146 mmol/L [facility] Potassium, pl 3.9 3.5 - 5.3 mmol/L [facility] Chloride 100 98 - 110 mmol/L [facility] CO2 32 20 - 32 mmol/L [facility] Calcium 9.1 8.6 - 10.4 mg/dL [facility] Protein, sr 7.0 6.1 - 8.1 g/dL [facility] Albumin 4.1 3.6 - 5.1 g/dL [facility] GLOBULIN 2.9 1.9 - 3.7 g/dL (calc) [facility] Alb/glob ratio 1.4 1.0 - 2.5 (calc) [facility] Bilirubin, total 0.4 0.2 - 1.2 mg/dL [facility] Alk phos 68 37 - 153 U/L [facility] AST 24 10 - 35 U/L [facility] ALT (SGPT) 25 6 - 29 U/L [facility] Blood 04/13/2024 10:0 8 AM PHOTOGRAPHIC PLATEMAKER 04/13/2024 10:09 AM PHOTOGRAPHIC PLATEMAKER Narrative [facility] - 04/15/2024 1:44 AM PHOTOGRAPHIC PLATEMAKER FASTING:YES FASTING: YES Amparo Acevedo NP LAB BLOOD ORDERABLES Sheri l Result [facility] [address] [place] [address] * ECG 12 lead (04/01/2024 4:01 PM PHOTOGRAPHIC PLATEMAKER) Steven Blair MD ECG ORDERABLES Final Re sult * Screening Mammogram 2D Bilateral (12/29/2018 9:48 AM CDT) Anatomical Region Laterality Modality Breast Bilateral Mammography Narrative 12/31/2018 7:29 AM CDT Screening Mammogram 2D Bilateral: 12/29/18 Clinical: Encounter for screening mammogram for malignant neoplasm of breast. Prior Study Comparisons: Comparison was made to the prior available relevant studies at the time of interpretation. Findings: Bilateral No significant masses, malignant type calcifications, skin thickening, nipple retraction, or significant lymphadenopathy is noted in either breast. The CAD review showed no significant findings. The breasts have scattered areas of fibroglandular density. The patient will be notified of results by letter. Impression: BI-RADS ATLAS category (overall): 1 Negative There is no mammographic evidence of malignancy. Routine Screening Mammogram in 1 Yr is recommended for bilateral Overall Assessment: 1 - Negative us Self Screening Mammogram IMG MAMMO PROCEDURES Fi nal Result from Last 3 Months or Most Recently Relevant to Health Maintenance Insurance [employer] ACCESS CHOICE [employer] Care Teams Marketing Information Analyst Relationship Specialty Start Date End Date Misael Fofana MD [id number] [address] PCP - General 12/16/17
--- OUTSIDE RECORDS SUMMARY | 2024-06-25 01:36 | XMS_ITS | Clinical Summary ---
Author Organization [facility] [address] Address [address] [place] [address] Care Team Providers Care Morphology Teacher Name Role Phone Misael Fofana MD Primary Care Provider [phone] Allergies No known active allergies Medications escitalopram [...] Hyperlipidemia associated with type 2 diabetes m ellitus 11/05/2021 ANTONIA (obstructive sleep apnea) 11/05/2021 Class 3 obesity 11/05/2021 Paroxysmal atrial fibrillation 08/10/2021 exterminator helper current use of amiodarone 08/10/2021 Encounters Date Type Department Care Team Description 06/24/2024 8:15 AM CDT Office Visit [facility] [address] [place] [phone] Steven Blair MD Paroxysmal atrial fibrillation (HCC) (Primary Dx); Atypical atrial flutter (HCC) 04/15/2024 Telephone [facility] [address] [place] [phone] Amparo Acevedo NP 04/01/2024 10:15 AM RN BONE MARROW TRANSPLANT Office Visit [facility] Card[facility] [address] [place] [address] [address] [place] [phone] Steven Blair MD Paroxysmal atrial fibrillation (HCC) (Primary Dx); Atypical atrial flutter (HCC) from Last 3 Months Surgical History Surgery Date Site/Laterality Comments ABLATION TUBAL LIGATION Medical History Medical History Date Comments Hypertension Diabetes mellitus (HCC) Obesity Sleep apnea Anxiety and depression Sinusitis Anemia Family History Medical History Relation Name Comments Breast cancer Maternal Grandmother Colon cancer Mother Ovarian cancer Mother's Sister Relation Name Status Comments Father Alive Maternal Grandmother Mother Mother's Sister Social History Tobacco Use Types Packs/Day Years [...] on file Legal Sex Female 2:43 AM RN BONE MARROW TRANSPLANT Gender Identity Not on file Sexual Orientation Not on file Obstetrics History Last Filed Vital Signs Vital Sign Reading [...] 06/24/2024 8:02 AM CDT Plan of Treatment Health Maintenance Due Date Last Done Comments Albumin Creatinine Ratio, Urine 1965 Cervical Cancer Screening 1965 Colon Cancer Screening-Colonoscopy 1965 Depression Screening 1965 Hemoglobin A1C 1965 Hepatitis C Screening 1965 Dilated Eye Exam 1965 Foot Exam 1965 DTaP/Tdap/Td Vaccine (1 - Tdap) 1976 Hepatitis B Screening 07/14/1983 Regular Well Visit/Exam 18-64 07/14/1983 Pneumococcal vaccine <65 (1 of 2 - PCV) 1984 Zoster Vaccine (1 of 2) 07/14/2015 Breast Cancer Screening-Mammogram 12/30/2019 019, 12/30/2017 Covid-19 Vaccine (2 - 2023-2 5 season) 2023 05/22/2020 Influenza Vaccine (Season Ended) 2024 eGFR 04/13/2025 04/13/2024, 10/15, 11/05/2021 Lipid Panel 06/24/2025 06/24/2024, 10/16, 08/06/2022, Additional history exists Procedures Procedure Name Priority Date/Time Associated Diagnosis Comments POCT LIPID PANEL Routine 06/24/2024 8:56 AM CDT Paroxysmal atrial fibrillation (HCC) TSH W/REFL FT4 Routine 04/13/2024 10:08 AM RN BONE MARROW TRANSPLANT COMPREHENSIVE METABOLIC PANEL Routine 04/13/2024 10:08 AM RN BONE MARROW TRANSPLANT [facility] current use of amiodarone ECG 12-LEAD Routine 04/01/2024 4:01 PM RN BONE MARROW TRANSPLANT Paroxysmal atrial fibrillation (HCC) SCREENING MAMMOGRAM 2D [...] Capillary blood 06/24/2024 8 :56 AM CDT us Steven Blair MD POINT OF CARE TEST ORDER YESI Final Result * TSH W/REFL FT4 (04/13/2024 10:08 AM RN BONE MARROW TRANSPLANT) TSH 2.22 0.40 - 4.50 mIU/L [facility] 04/13/2024 10:0 8 AM RN BONE MARROW TRANSPLANT 04/13/2024 10:09 AM RN BONE MARROW TRANSPLANT Narrative [facility] - 04/15/2024 1:44 AM RN BONE MARROW TRANSPLANT FASTING:YES FASTING: YES us Amparo Acevedo DIRECTOR OF MARKETING AND PROMOTIONS LAB BLOOD ORDERABLES Sheri l Result [facility] [address] [place] [address] * (ABNORMAL) Comprehensive metabolic panel (04/13/2024 10:08 AM RN BONE MARROW TRANSPLANT) Glucose 132(H) 65 - 99 mg/dL [facility] Blood 04/13/2024 10:0 8 AM RN BONE MARROW TRANSPLANT 04/13/2024 10:09 AM RN BONE MARROW TRANSPLANT Narrative [facility] - 04/15/2024 1:44 AM RN BONE MARROW TRANSPLANT FASTING:YES FASTING: YES Amparo Acevedo NP LAB BLOOD ORDERABLES Sheri l Result [facility] [address] [id number] * ECG 12 lead (04/01/2024 4:01 PM RN BONE MARROW TRANSPLANT) Steven Blair MD ECG ORDERABLES Final Re [...] for bilateral Overall Assessment: 1 - Negative Self Screening Mammogram IMG MAMMO PROCEDURES Fi nal Result from Last 3 Months or Most Recently Relevant to Health Maintenance Insurance [employer] ACCESS CHOICE ANTHEM ACCESS CHOICE Care Teams Morphology Teacher Relationship Specialty Start Date End Date Misael Fofana MD [address] [address] PCP - General 12/16/17
--- OUTSIDE RECORDS SUMMARY | 2024-06-25 01:36 | XMS_ITS | Clinical Summary ---
Author Organization [facility] Address [address] [place] [address] Care Team Providers Care Neon Glass Bender Name Role Phone Misael Fofana MD Primary Care Provider Source Comments [employer] [facility],non-owned Affiliates and Associated Physician Practices is amultiple site organization consisting of ambulatory clinics and hospital sitesin [place], [place], [place] and [place]. This disclosure is being madepursuant to the Care Everywhere program and may not contain all information available regarding this patient. Last updated [employer] Allergies No known active allergies Medications * Be aware that medications may not be up to date on this document. Alwaysverify current medications with the patient. Medication Sig Dispensed Refills Start Date End Date Status LISINOPRIL PO Active METFORMIN HCL PO Active OMEPRAZOLE PO Active Escitalopram Oxalate (LEXAPRO PO) Active Family History Medical History Relation Name Comments Cancer - Colon Mother Asthma Neg Hx Autoimmune Disease Neg Hx Bipolar Disorder Neg Hx Cancer - Breast Neg Hx Cancer - Other Neg Hx Cancer - Ovarian Neg Hx Cancer - Pancreatic Neg Hx Cancer - Prostate Neg Hx Depression Neg Hx Eczema Neg Hx Hypertension Neg Hx Migraine Neg Hx Osteoporosis Neg Hx Seizures Neg Hx Sudd. <30 Neg Hx Thyroid Disease Neg Hx Ulcerative Colitis Neg Hx Relation Name Status Comments Father Alive Mother Social History Tobacco Use Types Packs/Day Years Used Date Smoking Tobacco: Never Smokeless Tobacco: Never Tobacco Cessation:Counseling Given: No Alcohol Use Standard Drinks/Week Comments No 0 (1 standard drink = 0.6 oz pur e alcohol) Sex and Gender Information Value Date Recorded Sex Assigned at Not on file Gender Identity Not on file Sexual Orientation Not on file Last Filed Vital Signs Vital Sign Reading Time Taken Comments Blood Pressure 122/78 03/04/2018 9:38 AM GENERAL OFFICE WORKER Pulse 88 03/04/2018 9:38 AM GENERAL OFFICE WORKER Temperature 36.4 C (97.6 F) 03/04/2018 9:38 AM GENERAL OFFICE WORKER Respiratory Rate 20 03/04/2018 9:38 AM GENERAL OFFICE WORKER Oxygen Saturation 97% 03/04/2018 9:38 AM GENERAL OFFICE WORKER Inhaled Oxygen Concentration - - Weight 140.6 kg (310 lb) 03/04/2018 9:38 AM GENERAL OFFICE WORKER Height 170.2 cm (5' 7 ) 03/04/2018 9:38 AM GENERAL OFFICE WORKER Body Mass Index 48.55 03/04/2018 9:38 AM GENERAL OFFICE WORKER Plan of Treatment Health Maintenance Due Date Last Done Comments COLOGUARD (AGES 45-75) - COL ON CA SCREENING 1965 COLON MONITORING 1965 COLONOSCOPY - COLON CA SCREENING 1965 CT COLONOGRAPHY - COLON CA SCREENING 1965 Colorectal Cancer Screening 1965 FIT - COLON CA SCREENING 1965 FLEX SIG - COLON CA SCREENING 1965 LIPID TESTING 1965 MAMMOGRAM 1965 PAP SMEAR 1965 HIV SCREENING 1980 HEPATITIS C SCREENING 07/09/1983 DTAP/TDAP/TD VACCINES (1 - Tdap) 1984 HEPATITIS B VACCINE (1 of 3 - 19+ 3-dose series) 1984 PNEUMOCOCCAL VACCINE 50+ (1 of 1 - PCV) 07/14/2015 ZOSTER VACCINE (1 of 2) 07/14/2015 SCREENING FOR DIABETES 03/04/2018 COVID-19 VACCINE (1 - 2023-2 5 season) 2023 DEPRESSION SCREENING 03/17/2024 INFLUENZA VACCINE (Season Ended) 2024 HIB VACCINE Aged Out No longer eligi ble based on patient's age to complete this topic HPV VACCINE Aged Out No longer eligi ble based on patient's age to complete this topic MENINGOCOCCAL (Group B) VACC INE SHARED DECISION-MAKING Aged Out No longer eligibl e based on patient's age to complete this topic MENINGOCOCCAL GROUPS A/C/Y/W VACCINE Aged Out No longer eligible b ased on patient's age to complete this topic PNEUMOCOCCAL VACCINE Aged Out No long er eligible based on patient's age to complete this topic Care Teams Neon Glass Bender Relationship Specialty Start Date End Date Misael Fofana MD PCP - General Family Medicine 03/04/18
--- OUTSIDE RECORDS SUMMARY | 2024-06-25 01:36 | XMS_ITS | Clinical Summary ---
Author Organization [facility] Address [address] [address] Phone Care Team Providers Care Cabbage Salter Name Role Phone Misael Fofana MD Primary Care Provider Medications polyethylene glycol (MIRALAX) Powder Mix the entire bottle with 64 oz of a clear liquid. Use as directed by the office for colonoscopy prep. 255 g 0 5 Active IRON POIndications:6 5 mg Take 1 Tab by mouth daily. Indications: 65 mg Active metFORMIN (GLUCOPHAGE) 500 MG Tablet Take 1,000 mg by mouth daily. Active Liraglutide (VICTOZA) 18 MG/3ML Solution Pen-injector 1 Dose by Subcutaneous route daily. Active lisinopril (PRINIVIL, ZESTRIL) 40 MG Tablet Take 40 mg by mouth daily. Active escitalopram (LEXAPRO) 20 MG Tablet Take 20 mg by mouth daily. Active Omeprazole 20 MG Tablet Delayed Response Take 1 Tab by mouth daily. Active Family History Medical History Relation Name Comments Diabetes Father Colon Cancer Mother colon Diabetes Mother Relation Name Status Comments Father Alive Mother Social History Tobacco Use Types Packs/Day Years Used Date Smoking Tobacco: Never Alcohol Use Standard Drinks/Week Comments No 0 (1 standard drink = 0.6 oz pur e alcohol) Rarely Comments Unknown Sex and Gender Information Value Date Recorded Sex Assigned at Not on file Legal Sex Female 12:20 AM CDT Gender Identity Not on file Sexual Orientation Not on file Last Filed Vital Signs Vital Sign Reading Time Taken Comments Blood Pressure 147/82 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 Pulse - - Temperature 36.5 C (97.7 F) 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 Respiratory Rate 20 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 Oxygen Saturation 96% 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 Inhaled Oxygen Concentration - - Weight 139.7 kg (308 lb) 04/10/2015 1:00 PM FIELD TRAINER Height 170.2 cm (5' 7 ) 04/10/2015 1:00 PM FIELD TRAINER Body Mass Index 48.24 04/10/2015 1:00 PM FIELD TRAINER Plan of Treatment Health Maintenance Due Date Last Done Comments Hepatitis C Virus (HCV) Screening 1965 TdaP Immunization 1965 Hepatitis B Immunization (1 of 3 - 19+ 3-dose series) 1984 Pap Smear 1986 Cervical Cancer Screening (CCS) 07/14/1995 HPV/Cotest 07/14/1995 Cologuard 07/14/2015 Immunochemical Fecal Occult Blood 07/14/2015 Mammogram 07/14/2015 Pneumococcal Immunization (5 0+ years) (1 of 1 - PCV) 07/14/2015 Zoster Immunization (1 of 2) 07/14/2015 Influenza Immunization (#1) 2023 SARS-COV-2 Immunization (1 - season) 2023 Colonoscopy 04/14/2025 04/14/2015 Colorectal Cancer Screening 04/14/2025 Respiratory Syncytial Virus (RSV) Immunization (Adult) (1 - 1-dose 75+ series) 2040 04/14/2015 Meningococcal Immunization (ACWY) Aged Out No longer eligible based on patient's age to complete this topic Pneumococcal Immunization Combined Aged Out No longer eligible based on patient's age to complete this topic Rotavirus Immunization Aged Out No lo nger eligible based on patient's age to complete this topic Insurance [facility] Care Teams Cabbage Salter Relationship Specialty Start Date End Date Misael Fofana MD [address] [address] PCP - General Family Medicine 03/03/15
--- OUTSIDE RECORDS SUMMARY | 2024-06-25 01:36 | XMS_ITS | Encounter Summary ---
Author Organization [facility] Address [address] [place] [address] Care Team Providers Care Rn Plastics Name Role Phone Misael Fofana MD Primary Care Provider [phone] Reason for Visit * Reason Comments Follow-up 2-3 mo f/u Atrial Fibrillation Encounter Details Date Type Department Care Team (Late st Contact Info) Description 06/24/2024 8:15 AM CDT Office Visit [facility] [address] [place] [address] Steven Blair MD [address] [facility] 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 Gender Identity Not on file Sexual Orientation Not on file documented as of this encounter Last Filed Vital Signs Vital Sign Reading Time Taken Comments Blood Pressure 132/74 06/24/2024 8:02 AM CDT Pulse 69 06/24/2024 8:02 AM CDT Temperature - - Respiratory Rate - - Oxygen Saturation 99% 06/24/2024 8:02 AM CDT Inhaled Oxygen Concentration - - Weight 150 kg (330 lb 9.6 oz) 06/24/2024 8:02 AM CDT Height 170.2 cm (5' 7 ) 06/24/2024 8:02 AM CDT Body Mass Index 51.78 06/24/2024 8:02 AM CDT documented in this encounter Progress Notes * Steven Blair MD - 06/24/2024 8:15 AM CDT [facility] FOLLOW UP 06/24/2024 Brina Merida is a 58 y.o. female who presents for follow up of paroxysmal atrial fib/flutter. Thisis a patient that has been seen for the last several years in the office for this arrhythmia and has been managed primarily by Dr. Tong. Upon her penitentiary she has been assigned to my clinic. The patient has a history of asymptomatic paroxysmal AFib that was noticed during a physician's appointment several years ago. She was hospitalized elsewhere and treated with a combination of amiodaroneand diltiazem with heart rate control. In the last couple of years she has transitioned from that practice to our practice and has been seen by Dr. Tong. She has no history of ischemic heart disease, LV dysfunction or congestive heart failure. She does have morbid obesity and sleep apnea as herprincipal comorbidity. The patient has been seen in the past by electrophysiology for consultation and ablation was considered and discussed but declined by the patient. 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 A 48 hour monitor was done prior to thisappointment which demonstrates a 50% AF burden. With her AF again she has no symptoms or complaintsat all. When she was in the hospital controlling her heart rate was challenging and her amiodarone dosage for that reason was advanced to 400 mg daily. Had a long conversation with the patient and her son who was with her in the room about long-term rhythm versus rate control strategy. In March of 2024 the patient was seen in follow-up in the office and was asymptomatic but was in atrial flutter. She declined the option of seeing an mold bunch trimmer to consider an ablation procedure. The dosage of her sotalol was increased. She returns to the office today for a scheduled follow-up appointment. She says she feels well and does not have any symptoms related to her AFib or flutter. Her heart rate is in the high 60s and is regular. She is having no difficulty tolerating systemic anticoagulation. Her principal health problem of course continues to be morbid obesity. REVIEW OF SYSTEMS General ROS: negative for - chills, fatigue, fever, malaise, night sweats, weight gain or weight loss Psychological ROS: negative for - anxiety, depression, memory difficulties or sleep disturbances Ophthalmic ROS: negative for - blurry vision, decreased vision, loss of vision or scotomata ENT ROS: negative for - epistaxis, headaches, hearing change, nasal congestion, nasal discharge, sore throat, vertigo or visual changes Hematological and Lymphatic ROS: negative for - bleeding problems, blood clots, bruising, fatigue or weight loss Endocrine ROS: negative for - hot flashes, palpitations, polydipsia/polyuria or unexpected weight changes Respiratory ROS: negative for - cough, hemoptysis, orthopnea, shortness of breath, tachypnea or wheezing Cardiovascular ROS: negative for - chest pain, dyspnea on exertion, edema, irregular heartbeat, loss of consciousness, murmur, orthopnea, palpitations, paroxysmal nocturnal dyspnea, rapid heart rate or shortness of breath Gastrointestinal ROS: negative for - abdominal pain, appetite loss, blood in stools, constipation, diarrhea, gas/bloating, heartburn, hematemesis, melena or nausea/vomiting Genito-Urinary ROS: negative for - dysuria, erectile dysfunction or hematuria Musculoskeletal ROS: negative for - joint pain, muscle pain or muscular weakness Dermatological ROS: negative for dry skin, eczema, pruritus and rash HOME MEDICATIONS Current Outpatient Medications: atorvastatin (LIPITOR) 10 mg tablet, , Disp: , Rfl: cholecalciferol (VITAMIN D-3) 1,000 unit capsule, Take 1 capsule (1,000 Units total) by mouth daily, Disp: , Rfl: escitalopram (LEXAPRO) 20 mg tablet, , Disp: , Rfl: ferrous fumarate 325 mg (106 mg iron) tablet, Take 1 tablet (325 mg total) by mouth daily with breakfast, Disp: , Rfl: furosemide (LASIX) 40 mg tablet, Take 2 tablets (80 mg total) by mouth daily, Disp: 180 tablet, Rfl: 3 lansoprazole (PREVACID) 30 mg capsule, , Disp: , Rfl: losartan (COZAAR) 50 mg tablet, , Disp: , Rfl: magnesium chloride 71.5 mg tablet,delayed release (DR/EC), Take by mouth, Disp: , Rfl: metFORMIN (GLUCOPHAGE) 500 mg tablet, Take 2 tablets (1,000 mg total) by mouth daily, Disp: , Rfl: Ozempic 2 mg/dose (8 mg/3 mL) pen injector injection, Inject 2 mg under the skin once a week, Disp:, Rfl: potassium chloride ER (KLOR-CON) 20 mEq CR tablet, Take 1 tablet (20 mEq total) by mouth 2 (two) times a day, Disp: , Rfl: rivaroxaban (Xarelto) 20 mg tablet, Take 1 tablet (20 mg total) by mouth daily, Disp: 90 tablet, Rfl: 2 sotaloL (BETAPACE) 120 mg tablet, Take 1 tablet (120 mg total) by mouth 2 (two) times a day, Disp: 180 tablet, Rfl: 2 spironolactone (ALDACTONE) 50 mg tablet, , Disp: , Rfl: traMADoL (ULTRAM) 50 mg tablet, , Disp: , Rfl: traZODone (DESYREL) 50 mg tablet, , Disp: , Rfl: vitamin b complex tablet, Take 1 tablet by mouth daily, Disp: , Rfl: zolpidem (AMBIEN) 10 mg tablet, 0.5 tablets (5 mg total), Disp: , Rfl: LABS AND OTHER DIAGNOSTIC TESTS No results found for: CHOL No results found for: HDL No results found for: LDLCALC No results found for: TRIG No results found for: CHOLHDL No results found for: WBC , HGB , HCT , MCV , PLT No lab exists for component: LABALBU PHYSICAL EXAM Vitals BP 132/74 (BP Location: Right arm, Patient Position: Sitting) Pulse 69 Ht 170.2 cm (5' 7 ) Wt (!) 150 kg (330 lb 9.6 oz) SpO2 99% BMI 51.78 kg/m?? Physical Examination: General appearance - alert, pleasant morbidly obese white female nd in no distress, oriented to person, place, and time and acyanotic, in no respiratory distress Mental status - affect appropriate to mood Eyes - extraocular eye movements intact, sclera anicteric, no pallor Ears - external earsappear normal, hearing grossly normal bilaterally Nose - normal and patent, no erythema or discharge Mouth - mucous membranes moist, pharynx appears normal, dental hygiene good and tongue normal Neck - supple, no significant neck masses, carotids upstroke normal bilaterally, no bruits, no JVD Chest - clear to auscultation, no wheezes, rales or rhonchi, symmetric air entry, no tachypnea, retractions or cyanosis Heart - normal rate, regular rhythm, normal S1, S2, no murmurs, rubs, clicks or gallops, no JVD Abdomen - soft, nontender, nondistended, no masses or organomegaly bowel sounds normal Neurological - alert, oriented, normal speech, no focal findings or movement disorder noted Musculoskeletal - no joint tenderness, deformity or swelling, no muscular tenderness noted Extremities - peripheral pulses normal, no pedal edema, no clubbing or cyanosis Skin - normal coloration and turgor, no rashes, no suspicious skin lesions noted ASSESSMENT Brina was seen today for follow-up and atrial fibrillation. Diagnoses and all orders for this visit: Paroxysmal atrial fibrillation (HCC) Atypical atrial flutter (HCC) Atrial flutter PLAN/RECOMMENDATIONS Continue current regimen of sotalol as well as systemic anticoagulation Six-month follow-up Steven Blair MD documented in this encounter Miscellaneous Notes * Addendum Note - Savannah Markham MA - 06/24/2024 8:15 AM CDTAddended by: SAVANNAH MARKHAM on: 06/24/2024 08:59 AM Modules accepted: Orders documented in this encounter Plan of Treatment Scheduled Orders Name Type Priority Associated Diagnoses Orde r Schedule Lipid panel Lab Routine Paroxysmal atrial fibrillation (HCC) Expected: 06/24/2024, Expires: 06/24/2025 documented as of this encounter Procedures Procedure Name Priority Date/Time Associated Diagnosis Comments POCT LIPID PANEL Routine 06/24/2024 8:56 AM CDT Paroxysmal atrial fibrillation (HCC) documented in this encounter Results * POCT lipid panel (06/24/2024 8:56 AM CDT) Cholesterol, POC 157 mg/dL Comment:GLU = 178 HDL, POC 29 mg/dL Triglycerides, POC 204 mg/dL LDL Cholesterol POC 87 mg/dL Chol/HDL Ratio, POC 3.0 Non-HDL Cholesterol, POC 128 mg/dL Cholesterol Total, POC 157 mg/dL Capillary blood 06/24/2024 8 :56 AM CDT Steven Blair MD POINT OF CARE TEST ORDER YESI Final Result documented in this encounter Visit Diagnoses Diagnosis Paroxysmal atrial fibrillation (HCC)- Primary Atrial fibrillation Atypical atrial flutter (HCC) documented in this encounter Historical Medications * This list may reflect changes made after this encounter. zolpidem (AMBIEN) 10 mg tablet 0.5 tablets (5 mg total) 06/10/2024 added in this encounter Care Teams Rn Plastics Relationship Specialty Start Date End Date Misael Fofana MD [address] [place] [id number] PCP - General 12/16/17 documented as of this encounter
--- OUTSIDE RECORDS SUMMARY | 2024-06-25 01:36 | XMS_ITS | Continuity of Care Document ---
Author Organization [facility] Address [address] [place] [address] [address] [place] [address] Phone Care Team Providers Care Marine Fireman Name Role Phone Ralf Gilmore Unavailable Unavailable Procedures Procedure Date Office/outpatient Visit, Est Office/outpatient Visit, Est Advance Directives Directive Yes / No Effective Date File Name No Information Encounters Encounter Description Practice Location Reason(s) For Visit Diagnoses Date Provider Providers Copied on Encounter Office/outpat ient Visit, [facility], [address] [place] [address] [address], [place], [place], [id number], tel:[phone] [facility] No Information [address], [place], [place], [facility], [place]. tel:[phone] Office/outpat ient Visit, [facility], [address] [place] [address] [address], [place], [place], [id number], [place] tel:[phone] [facility] No Information [address], [place], [address], [place]. tel:[phone] Family History Family Member Type Diagnosis Age At Onset No Information Payers Payer name Insurance type Covered constitution party ID Authoriza tion(s) [employer] [id number] Social History Type Description Quantity Date Captured Comments Sex Female Smoking Status No Information Chief Complaint And Reason For Visit No Information Reason For Referral Reason For Referral No Information History Of Present Illness Encounter Date Complaint History Of Prese nt Illness No Information Functional Status Date Functional Assessmen t No Information Instructions Date Instruction Additional Infor mation No Information Assessments Type Assessment Date No Information Patient Care Teams Name Effective Dates (start - stop) Status Members No Information
[2024-06-25 11:00] VITALS: BP 149/75; PULSE 69; RESP 18; TEMP 35.8; O2SAT 100
[2024-06-25] MEDS: LACTATED RINGERS 1,000 ML 150 ML IV CONT (11:12)
[2024-06-25 11:13] LABS: Glucose Point of Care 125 mg/dl (65-105)
--- NOTE | 2024-06-25 11:54 | P.HP_ITS ---
History of Present Illness History of Present Illness Consent: Risks, benefits, and alternatives have been discussed and questions answered. Patient agrees to proceed with procedure. Chief complaint: hx of colon polyps, family hx of cancer Narrative: Brina Merida is a 58 year old female here for colonoscopy, last one 5 years ago, mother had colon cancer Review of Systems Review of Systems: All systems reviewed & are unremarkable except as noted in HPI and below PMFSH Past Medical History Medical History (Updated 06/25/24 @ 11:55 by Casey Barrera MD) Family history of colon cancer in mother Polyp of colon colon polyps on colonoscopy 06/20/2008. Colonoscopy 03/04/2001. Family history of cancer in mother mother with colon cancer in her 50s. Atrial flutter, chronic (~05/30/21) atypical atrial fibrillation and atrial flutter around 05/30/2021. Managed by sticker on Diastolic CHF, chronic Degenerative joint disease of knee Left knee pain Right otitis media Acute sinusitis Cellulitis of left lower extremity Morbid obesity with BMI of 50.0-59.9, adult Breast cancer screening by mammogram Hypokalemia ANTONIA (obstructive sleep apnea) Acute diastolic CHF (congestive heart failure) Atrial fibrillation with rapid ventricular response Irregular menses FSH 9.2, LH 7.1, estradiol 82 on 02/28/2021 UTI (urinary tract infection) Microalbuminuria due to type 2 diabetes mellitus (09/19/20) Microalbumin ratio 31. Ratio normal at 20 on 10/30/2022. 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 and moderate on the left arthritis of the SI joints Diabetes A1c 05/20/20 was 7.3 Acute pharyngitis, unspecified Hip pain, right Chronic low back pain with right-sided sciatica (~11/25/16) COVID-19 Muscle spasm of both lower legs Chronic low back pain with left-sided sciatica Chronic left hip pain Acute non-recurrent maxillary sinusitis Body mass index (BMI) of 50-59.9 in adult (01/06/19) Surgical History Surgical History Status post endometrial ablation History of tubal ligation Family History Family History Father Diabetes mellitus Mother Carcinoma of colon, Onset Age: 53 Grandparent Family history of malignant neoplasm of breast in first degree relative, Onset Age: 90 Social History Social History Social History: Lives and was feel, works in [employer]. Does computer work. Smoking packs per day: 0 Smoking cigarettes per day: 0.0 Smoking status: Never smoker Second hand tobacco smoke exposure: No Alcohol intake: never Alcohol use details: [place] Substance use: never Substance use type: does not use Lack of Transportation: No Lack of Food: Never True Current Housing: I Have Housing Concerned About Future Housing: No Difficulty Paying Gas/Electric Bills: No Difficulty Paying for Meds: No Currently Unemployed: No Education: High School Diploma/GED Difficulty w/ Childcare or Family Care: No Living arrangements: alone Occupation/Education: occupation Additional occupation/education comments: Character Booster Gender identity (if verbalized by the patient): Female Spiritual care concerns: No Meds Home Medications and Allergies Home Medications ?Medication ?Instructions ?Recorded ?Confirmed ?Type albuterol sulfate 90 mcg/actuation 2 puff inhalation Q4H PRN 01/19/19 06/17/24 Rx aerosol inhaler (ProAir HFA) shortness of breath #18 grams rivaroxaban 20 mg tablet (Xarelto) 20 mg PO QPM 09/27/20 06/25/24 History blood sugar diagnostic (OneTouch #50 ea 06/03/23 06/17/24 Rx Verio test strips) blood-glucose meter (OneTouch #1 ea 06/03/23 06/17/24 Rx Verio Flex Meter) lancets 33 gauge (OneTouch Delica #100 ea 06/03/23 06/17/24 Rx Plus Lancet) metformin 500 mg tablet,extended 1,000 mg (2 x 500 mg) PO QPM #180 09/08/23 06/25/24 Rx release 24 hr tabs atorvastatin 10 mg tablet 10 mg PO DAILY #90 tabs 11/05/23 06/25/24 Rx escitalopram oxalate 20 mg tablet 20 mg PO DAILY #90 tabs 11/05/23 06/25/24 Rx lansoprazole 30 mg capsule,delayed 30 mg PO DAILY #90 caps 11/05/23 06/25/24 Rx release semaglutide 2 mg/dose (8 mg/3 mL) 2 mg (0.75 mL) subcut WEEKLY #3 mL 11/05/23 06/25/24 Rx subcutaneous pen injector (Ozempic) cholecalciferol (vitamin D3) 25 25 mcg PO DAILY 02/09/24 06/25/24 History mcg (1,000 unit) capsule ferrous fumarate 325 mg (106 mg 325 mg PO DAILY 02/09/24 06/25/24 History iron) tablet furosemide 40 mg tablet (Lasix) 80 mg PO DAILY 02/09/24 06/25/24 History losartan 50 mg tablet 50 mg PO DAILY 02/09/24 06/25/24 History magnesium chloride 71.5 mg 71.5 mg PO DAILY 02/09/24 06/25/24 History (magnesium chloride) tablet,delayed release potassium chloride 20 mEq 20 meq PO BID 02/09/24 06/25/24 History tablet,extended release(part/cryst) (Klor-Con M) vitamin B complex 1 cap PO DAILY 02/09/24 06/25/24 History tramadol 50 mg tablet See Rx Instructions PO Q6H PRN 04/08/24 06/17/24 Rx pain #50 tabs sotalol 120 mg tablet 120 mg PO Q12H 04/15/24 06/25/24 History trazodone 50 mg tablet 50 mg PO HS #90 tabs 04/15/24 06/25/24 Rx spironolactone 50 mg tablet 50 mg PO DAILY #90 tabs 05/05/24 06/25/24 Rx zolpidem 10 mg tablet (Ambien) 10 mg PO QHS PRN insomnia #30 tabs 05/06/24 06/17/24 Rx Allergies Allergy/AdvReac Type Severity Reaction Status Date / Time No Known Allergies Allergy Verified 06/25/24 10:56 Vital Signs Vital Signs - 24 hr 06/25/24 11:00 Temperature 96.5 F L Pulse Rate 69 Respiratory Rate 18 Blood Pressure 149/75 H Pulse Oximetry 100 Oxygen Delivery Room Air Exam Const: General: comfortable and no acute distress Nutritional Appearance: obese HENMT: Face/Nose/Sinus: Normal nares present Eyes: General: appearance normal, both eyes and all related structures Neck: Neck: no JVD Resp: Auscultation: clear to auscultation bilaterally Cardio: Rate: regular rate Rhythm: regular rhythm GI: Inspection: non-distended GI Palp: Yes Soft to palpation Skin: General skin exam: normal color Neuro: General: gait normal Speech: normal speech Extrem: General: normal to inspection Psych: Mental Status: mental status grossly normal Assessment and Plan Assessment and plan (1) Polyp of colon: Qualifiers: Colon polyp type: unspecified Colon location: unspecified part of colon Qualified Code(s): K63.5 - Polyp of colon Code(s): K63.5 - Polyp of colon Status: Acute (2) Family history of colon cancer in mother: Code(s): Z80.0 - Family history of malignant neoplasm of digestive organs Status: Inactive Assessment and Plan: colonoscopy
--- NOTE | 2024-06-25 11:56 | WPDANESEPPF ---
Anes - Initial Pre Proc Eval Procedure: Operation Date: 06/25/24 12:30 Proposed Procedures p Colonoscopy - Casey Barrera MD Date/Time: 06/25/24 11:56 Surgeon: Casey Barrera MD Pre Op Diagnosis: hx of colon polyps, family hx of cancer Patient Data Age: 58 Gender: F Height: 1.7 m Weight: 147 kg Last Vital Signs Temp 96.5 F L 06/25/24 11:00 Pulse 69 06/25/24 11:00 Resp 18 06/25/24 11:00 BP 149/75 H 06/25/24 11:00 Pulse Ox 100 06/25/24 11:00 O2 Del Method Room Air 06/25/24 11:00 Allergies Allergy/AdvReac Type Severity Reaction Status Date / Time No Known Allergies Allergy Verified 06/25/24 10:56 Home Medications ?Medication ?Instructions ?Recorded ?Confirmed ?Type albuterol sulfate 90 mcg/actuation 2 puff inhalation Q4H PRN 01/19/19 06/17/24 Rx aerosol inhaler (ProAir HFA) shortness of breath #18 grams rivaroxaban 20 mg tablet (Xarelto) 20 mg PO QPM 09/27/20 06/25/24 History blood sugar diagnostic (OneTouch #50 ea 06/03/23 06/17/24 Rx Verio test strips) blood-glucose meter (OneTouch #1 ea 06/03/23 06/17/24 Rx Verio Flex Meter) lancets 33 gauge (OneTouch Delica #100 ea 06/03/23 06/17/24 Rx Plus Lancet) metformin 500 mg tablet,extended 1,000 mg (2 x 500 mg) PO QPM #180 09/08/23 06/25/24 Rx release 24 hr tabs atorvastatin 10 mg tablet 10 mg PO DAILY #90 tabs 11/05/23 06/25/24 Rx escitalopram oxalate 20 mg tablet 20 mg PO DAILY #90 tabs 11/05/23 06/25/24 Rx lansoprazole 30 mg capsule,delayed 30 mg PO DAILY #90 caps 11/05/23 06/25/24 Rx release semaglutide 2 mg/dose (8 mg/3 mL) 2 mg (0.75 mL) subcut WEEKLY #3 mL 11/05/23 06/25/24 Rx subcutaneous pen injector (Ozempic) cholecalciferol (vitamin D3) 25 25 mcg PO DAILY 02/09/24 06/25/24 History mcg (1,000 unit) capsule ferrous fumarate 325 mg (106 mg 325 mg PO DAILY 02/09/24 06/25/24 History iron) tablet furosemide 40 mg tablet (Lasix) 80 mg PO DAILY 02/09/24 06/25/24 History losartan 50 mg tablet 50 mg PO DAILY 02/09/24 06/25/24 History magnesium chloride 71.5 mg 71.5 mg PO DAILY 02/09/24 06/25/24 History (magnesium chloride) tablet,delayed release potassium chloride 20 mEq 20 meq PO BID 02/09/24 06/25/24 History tablet,extended release(part/cryst) (Klor-Con M) vitamin B complex 1 cap PO DAILY 02/09/24 06/25/24 History tramadol 50 mg tablet See Rx Instructions PO Q6H PRN 04/08/24 06/17/24 Rx pain #50 tabs sotalol 120 mg tablet 120 mg PO Q12H 04/15/24 06/25/24 History trazodone 50 mg tablet 50 mg PO HS #90 tabs 04/15/24 06/25/24 Rx spironolactone 50 mg tablet 50 mg PO DAILY #90 tabs 05/05/24 06/25/24 Rx zolpidem 10 mg tablet (Ambien) 10 mg PO QHS PRN insomnia #30 tabs 05/06/24 06/17/24 Rx Laboratory Tests 06/25/24 11:11 POC Capillary Glucose 125 H mg/dl (65-105) Patient hx anesthesia problems: none Family hx anesthesia problems: none Results Review: All pre-operative results and documents have been reviewed as part of the pre-operative evaluation. [facility] Past Medical History Medical History (Updated 06/25/24 @ 11:55 by Casey Barrera MD) Family history of colon cancer in mother Polyp of colon colon polyps on colonoscopy 06/20/2008. Colonoscopy 03/04/2001. Family history of cancer in mother mother with colon cancer in her 50s. Atrial flutter, chronic (~05/30/21) atypical atrial fibrillation and atrial flutter around 05/30/2021. Managed by senior engineering technician Diastolic CHF, chronic Degenerative joint disease of knee Left knee pain Right otitis media Acute sinusitis Cellulitis of left lower extremity Morbid obesity with BMI of 50.0-59.9, adult Breast cancer screening by mammogram Hypokalemia ANTONIA (obstructive sleep apnea) Acute diastolic CHF (congestive heart failure) Atrial fibrillation with rapid ventricular response Irregular menses FSH 9.2, LH 7.1, estradiol 82 on 02/28/2021 UTI (urinary tract infection) Microalbuminuria due to type 2 diabetes mellitus (09/19/20) Microalbumin ratio 31. Ratio normal at 20 on 10/30/2022. 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 and moderate on the left arthritis of the SI joints Diabetes A1c 05/20/20 was 7.3 Acute pharyngitis, unspecified Hip pain, right Chronic low back pain with right-sided sciatica (~11/25/16) COVID-19 Muscle spasm of both lower legs Chronic low back pain with left-sided sciatica Chronic left hip pain Acute non-recurrent maxillary sinusitis Body mass index (BMI) of 50-59.9 in adult (01/06/19) Surgical History Surgical History Status post endometrial ablation History of tubal ligation Family History Family History Father Diabetes mellitus Mother Carcinoma of colon, Onset Age: 53 Grandparent Family history of malignant neoplasm of breast in first degree relative, Onset Age: 90 Social History Social History Social History: Lives and was feel, works in [employer]. Does computer work. Smoking packs per day: 0 Smoking cigarettes per day: 0.0 Smoking status: Never smoker Second hand tobacco smoke exposure: No Alcohol intake: never Alcohol use details: [place] Substance use: never Substance use type: does not use Lack of Transportation: No Lack of Food: Never True Current Housing: I Have Housing Concerned About Future Housing: No Difficulty Paying Gas/Electric Bills: No Difficulty Paying for Meds: No Currently Unemployed: No Education: High School Diploma/GED Difficulty w/ Childcare or Family Care: No Living arrangements: alone Occupation/Education: occupation 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 Informed Consent: The patient's anesthetic plan and its attendant risks and benefits were discussed with the patient/family/POA. Questions were solicited and answers provided to the satisfaction of the patient/family/POA.
[2024-06-25 12:17] VITALS: BP 111/72; PULSE 119; RESP 22; O2SAT 96
[2024-06-25 12:27] VITALS: BP 119/78; PULSE 68; RESP 18; O2SAT 98
[2024-06-25 12:37] VITALS: BP 116/76; PULSE 61; RESP 26; O2SAT 98
== END 2024-06-25 12:46 | disposition home or self-care (01) ==
PROVIDERS: PCP Family Medicine; Referring Provider Family Medicine; Visit Provider Internal Medicine Gastroenterology
PROC: 0DJD8ZZ Inspection of Lower Intestinal Tract, Via Natural or Artificial Opening Endoscopic (ICD-10-PCS; CPT 45378; principal; 2024-06-25 12:30)
DX: Z12.11 Encounter for screening for malignant neoplasm of colon (principal); D12.3 Benign neoplasm of transverse colon; D12.4 Benign neoplasm of descending colon; D12.5 Benign neoplasm of sigmoid colon; E87.6 Hypokalemia; E11.42 Type 2 diabetes mellitus with diabetic polyneuropathy; M46.1 Sacroiliitis, not elsewhere classified; G47.33 Obstructive sleep apnea (adult) (pediatric); I48.20 Chronic atrial fibrillation, unspecified; I48.92 Unspecified atrial flutter; I50.32 Chronic diastolic (congestive) heart failure; M17.10 Unilateral primary osteoarthritis, unspecified knee; M62.838 Other muscle spasm; G89.29 Other chronic pain; M54.41 Lumbago with sciatica, right side; M54.42 Lumbago with sciatica, left side; M25.552 Pain in left hip; E66.01 Morbid (severe) obesity due to excess calories; Z68.43 Body mass index [BMI] 50.0-59.9, adult; Z79.51 Long term (current) use of inhaled steroids; Z79.01 Long term (current) use of anticoagulants; Z79.84 Long term (current) use of oral hypoglycemic drugs; Z79.85 Long-term (current) use of injectable non-insulin antidiabetic drugs; Z79.891 Long term (current) use of opiate analgesic; Z98.890 Other specified postprocedural states; Z98.51 Tubal ligation status; Z98.891 History of uterine scar from previous surgery; Z80.0 Family history of malignant neoplasm of digestive organs; Z80.3 Family history of malignant neoplasm of breast
CPT/HCPCS: 45385; 82948; 88305; J2704; J7120